=== PATIENT | male | born 1955 | race Caucasian/White ===

== ENCOUNTER 2018-06-28 08:40 | Emergency (ER) | payer OTHER, MEDICAID, SELFPAY ==
[2018-06-28 08:41] VITALS: BP 156/87; PULSE 83; RESP 16; TEMP 36.5; O2SAT 99; BMI 28.1
--- NOTE | 2018-06-28 09:30 | RAD_ITS ---
STUDY: X-RAY CHEST REASON FOR EXAM: Male, 63 years old. Cough. TECHNIQUE: PA and lateral views of the chest. COMPARISON: Portable chest dated September 15, 2016. FINDINGS: The lungs are clear and expanded. There is no pleural effusion. There is no pneumothorax. Normal size heart. There is no demonstrated mediastinal lymphadenopathy or mediastinal mass lesion. Normal visualized pulmonary arteries. There is atherosclerotic calcification of the aortic arch with tortuosity. There are diffuse degenerative changes of the visualized thoracic spine. There is no evident acute osseous abnormality. There is no demonstrated abnormality of the visualized soft tissue structures of the upper abdomen. RAD/Chest PA and Lateral IMPRESSION: There is no radiographically evident acute cardiopulmonary disease. Atherosclerotic peripheral vascular disease. Mild diffuse degenerative spinal changes. Electronically Signed: Mukesh Hoyos MD at 10:03 EDT , Service support ,
[2018-06-28 09:38] VITALS: TEMP 36.5; O2SAT 99
[2018-06-28 10:02] VITALS: TEMP 37
--- NOTE | 2018-06-28 10:54 | ED.VISSUMM ---
- ER Visit Summary Date of Service: 06/28/18 Chief Complaint: Cough History of Present Illness: The patient is a 63 M states for last 4 days he had a progressively worsening cough. Typically nonproductive at times clear sputum. No fever. No chills no shortness of breath. [facility] primary care physician 1 to have a chest x-ray done. He denies any nausea, vomiting or diarrhea. He does have a history of coronary disease with cardiac stents. He is a non-smoker. Physical Examination: Well-appearing older male. Vital signs are stable. He is afebrile. His pulse ox is 9 9% on room air no signs of hypoxia. H EENT exam unremarkable. Neck nontender no lymphadenopathy. Lungs clear to auscultation bilaterally. No rales, rhonchi or wheezing. Equal symmetrical. Heart regular rate and rhythm rate about 80 no murmur. Abdomen is soft and nontender. Patient is moving all 4 extremities. Neurovascular intact. Toes are nontender without edema. Her logically is awake and alert with no focal motor deficits. Test Results: Patient requested a chest x-ray be performed 2 view chest x-ray showed no acute abnormality. No pneumonia. Normal cardiac silhouette. Chronic changes. Emergency Department Course and Treatment: Patient is doing well on repeat exam at 1053. Treatment Plan: Z-pack. Follow-up with his primary care physician. Disposition: Discharge Impression: Acute bronchitis This note was generated with [employer] dictation software. It may contain incorrect words, spelling, and punctuation that were not noted in review of the chart prior to signing ED Disposition - Plan for ED Patient: Referrals: Bob Ortiz MD [Primary Care Provider] -
--- NOTE | 2018-06-28 10:56 | ED.DEP ---
ED Disposition - Plan for ED Patient: Disposition: Home or Assisted Living Instructions: Acute Bronchitis Prescriptions: Azithromycin [Zithromax Z-Lazaro] 250 mg PO UD #1 box Referrals: Bob Ortiz MD [Primary Care Provider] - 1 Week if not improving Additional Instructions: Plenty fluids and rest. Not improving in 4 days start antibiotic. This is most likely a viral infection. Follow-up with your doctor if not improving.
[2018-06-28 11:03] VITALS: PULSE 76; RESP 17; TEMP 37; O2SAT 97
== END 2018-06-28 11:11 | disposition home or self-care (01) ==
PROVIDERS: Emergency Provider Emergency Medicine; Family Provider Internal Medicine; PCP Internal Medicine
DX: J20.9 Acute bronchitis, unspecified (principal); I25.10 Atherosclerotic heart disease of native coronary artery without angina pectoris; Z95.5 Presence of coronary angioplasty implant and graft; I25.2 Old myocardial infarction; I10 Essential (primary) hypertension; E11.9 Type 2 diabetes mellitus without complications; Z79.82 Long term (current) use of aspirin; Z79.02 Long term (current) use of antithrombotics/antiplatelets; Z79.899 Other long term (current) drug therapy
CPT/HCPCS: 71046; 99282

== ENCOUNTER 2018-10-19 10:01 | Emergency (ER) | payer MEDICAID, OTHER, SELFPAY ==
[2018-07-27 12:44] VITALS: BMI 28.1
[2018-10-19 10:02] VITALS: BP 140/80; PULSE 71; RESP 18; TEMP 36.6; O2SAT 98; BMI 27.5
[2018-10-19 10:43] VITALS: BP 114/75; PULSE 65; RESP 18; O2SAT 97
[2018-10-19 10:43] LABS: Pathologist Comment May follow
--- NOTE | 2018-10-19 10:43 | ED.VISSUMM ---
- ER Visit Summary Date of Service: 10/19/18 Chief Complaint: Right elbow swelling History of Present Illness: The patient is a 63 M who states that he has developed right elbow swelling over the past several days. He does note that he bumped his elbows quite frequently but is never had this type of swelling. There is any pain in the elbow. Is able to flex and extend okay. Denies any fevers. He denies any no breaks in skin. He was recently on Plavix but that has been discontinued as it is been years since his NH. He has no history of gout. Physical Examination: Afebrile vital signs stable Gen: Well-nourished well-developed Head: Normocephalic atraumatic Eyes: Perrl EOMI ENT: TMs clear no rhinorrhea moist mucous membranes Neck: Supple no lymphadenopathy no JVD nontender CVS: Regular rate rhythm no murmurs normal S1-S2 Respiratory: No distress clear to auscultation bilaterally chest nontender Abdomen: Soft nontender nondistended normal bowel sounds no masses Back: Nontender Extremity: The right elbow demonstrates swelling over the olecranon. There is some mild redness and increased warmth. He is full range of motion without pain. I do not see any cuts in the skin. There is no lymphangitic streaking. Skin: Normal color no rash Neuro: alert orientated ?3 CN II-XII intact normal strength sensation Psych: Normal affect normal mood Test Results: Bursal fluid showed 178,000 white blood cells. Negative crystals. Negative Gram stain. Emergency Department Course and Treatment: Using a lateral approach and sterile technique the skin over the olecranon was washed with Betadine and allowed to dry. 1 cc of lidocaine was instilled into the skin for local anesthesia. An 18-gauge needle was passed successfully into the bursa and 10 cc of straw-colored fluid was removed. The needle was removed and Band-Aid applied. Abel wrap was then applied on top of that. Patient began to feel very hot and diaphoretic. He was laid down and was allowed to recover. Patient was started on prednisone and naproxen. Cultures of the fluid was obtained. Patient will follow up with primary care if not improving return if worsening or concerns. Impression: 1. Olecranon bursitis 2. Bursal aspiration by physician This note was generated with [employer] software. It may contain incorrect words, spelling, and punctuation that were not noted in review of the chart prior to signing ED Disposition - Plan for ED Patient: Disposition: Home or Assisted Living Instructions: Bursitis, Elbow (Olecranon) Prescriptions: Prednisone [Deltasone] 40 mg PO DAILY #10 tab Prescription Printed Naproxen [Naprosyn] 500 mg PO BID #14 tab Prescription Printed Referrals: Bob Ortiz MD [Primary Care Provider] - 3-5 Days if not improving
[2018-10-19 10:54] LABS: Synovial Fld Mononuclear WBC % 49.4 %; Synovial Fld Polynuclear WBC % 50.6 %
[2018-10-19 10:59] LABS: RBC /Synovial Fluid 0.005 10^6/uL (0)
[2018-10-19 11:08] LABS: AUTO B FLUID DILUENT BKGD CT WBC <0.1 RBC <0.01 (W<.1,R<.01); Source- Body Fluid SYNOVIAL
[2018-10-19 11:09] LABS: Appearance /Synovial Fluid Cloudy (CLEAR); Color / Synovial Fluid Yellow (Pale Yellow); Source / Synovial Fluid R ELBOW
[2018-10-19 11:30] LABS: Body Fluid QC Type(s) BF1Q,BF2Q
[2018-10-19 11:33] LABS: Lymph 13 %; Monocyte /Synovial Fluid 57 %; Neutrophil 30 % (0-25)
[2018-10-19 11:52] VITALS: BP 131/81; PULSE 65; RESP 18
[2018-10-21 09:15] LABS: Pathologist Review Reviewed
[2018-10-21 09:45] LABS: GLUCOSE, SYNOVIAL FLUID 119 mg/dL (.); PROTEIN, SYNOVIAL FLUID 3.9 g/dL (.)
== END 2018-10-19 11:54 | disposition home or self-care (01) ==
PROVIDERS: Emergency Provider Emergency Medicine; Family Provider Internal Medicine; PCP Internal Medicine
DX: M70.21 Olecranon bursitis, right elbow (principal); I25.2 Old myocardial infarction; I25.10 Atherosclerotic heart disease of native coronary artery without angina pectoris; K21.9 Gastro-esophageal reflux disease without esophagitis; I10 Essential (primary) hypertension; Z87.891 Personal history of nicotine dependence
CPT/HCPCS: 20605; 20610; 82945; 84157; 87070; 87075; 87205; 89050; 89051; 89060; 99283

== ENCOUNTER → 2020-09-20 09:39 | Outpatient (CLI) | payer MEDICAID, SELFPAY ==
[2020-09-01 11:46] VITALS: BMI 26.6
--- NOTE | 2020-09-20 09:41 | CDU_ITS ---
Reason For Study: Right carotid bruit Rt. Velocities/BP Lt. Velocities/BP Prox CCA 95.6/16 cm/sec. Prox CCA 92.5/15.1 cm/sec. Mid CCA 90.4/26.5 cm/sec. Mid CCA 63/15.1 cm/sec. Dist CCA 70.8/22.6 cm/sec. Dist CCA 69.5/14.2 cm/sec. Prox ICA 124.7/42.6 cm/sec. Prox ICA 39.3/8.1 cm/sec. Mid ICA 358.4/104 cm/sec. Mid ICA 268.9/96.4 cm/sec. Dist ICA 210.6/70.7 cm/sec. Dist ICA 94.2/30.3 cm/sec. Rt. ICA/CCA = 3.96. Lt. ICA/CCA = 3.90. Prox ECA 161.4/29.3 cm/sec. Prox ECA 181.3/21.1 cm/sec. Rt. Vert. 33.7/11 cm/sec. Lt. Vert. 69.5/24.1 cm/sec. Right Extracranial There is homogeneous, smooth atherosclerotic plaque noted in the right common carotid artery. There is heterogeneous, irregular atherosclerotic plaque noted in the right internal carotid artery. There is heterogeneous, irregular atherosclerotic plaque noted in the right external carotid artery. Antegrade flow is noted in the right vertebral artery. Left Extracranial There is homogeneous, smooth atherosclerotic plaque noted in the left common carotid artery. There is heterogeneous, irregular atherosclerotic plaque noted in the left internal carotid artery. Drum beat flow noted at the Proximal ICA. There is heterogeneous, irregular atherosclerotic plaque noted in the left external carotid artery. Antegrade flow is noted in the left vertebral artery. Procedure Carotid Duplex [id number]. This is a Carotid Duplex examination using B-mode, color flow and specral Doppler. Preliminary called to Sonja. Exam performed in department. VL/Carotid Duplex Ultrasound Interpretation Summary Irregular calcific plaque at the proximal right internal and external carotid a rteries Greater than 70% stenosis right internal carotid artery with visible area of na rrowed mid internal carotid artery with significant turbulence Less than 50% stenosis right external carotid artery Irregular calcific plaque at the proximal left internal and external carotid ar teries Greater than 70% stenosis left internal carotid artery Less than 50% stenosis left external carotid artery Patent and antegrade vertebral arteries bilaterally Ordering Physician: Gayathri Noonan Referring Physician: Bob Ortiz M.D. Performed By: Dionne Cabral RVT and Student
== END ==
PROVIDERS: PCP Internal Medicine; Referring Provider Physician Assistant Medical; Visit Provider Physician Assistant Medical
DX: R09.89 Other specified symptoms and signs involving the circulatory and respiratory systems (principal); I25.10 Atherosclerotic heart disease of native coronary artery without angina pectoris; I48.0 Paroxysmal atrial fibrillation; I10 Essential (primary) hypertension; E78.00 Pure hypercholesterolemia, unspecified
CPT/HCPCS: 93880

== ENCOUNTER → 2020-10-13 07:37 | Outpatient (CLI) | payer MEDICAID, SELFPAY ==
[2020-10-06 13:30] VITALS: BMI 26.9
--- NOTE | 2020-10-13 07:38 | CT_ITS ---
STUDY: CTA NECK WITH CONTRAST REASON FOR EXAM: Male, 65 years old. Bilateral carotid stenosis RADIATION DOSAGE (If Supplied By Facility): CTDIvol = ( 18.34 ) mGy, DLP = ( 540.83 ) mGycm TECHNIQUE: CT angiography with multi-detector data acquisition was performed from the aortic arch to the skull base following intravenous administration of IV 100mL Isovue-370. MIP images were reconstructed from the axial data set. Post-processing of the angiographic images was performed, with multiplanar reformation and 3D reconstruction. Individualized dose optimization techniques were used for this CT. COMPARISON: None. FINDINGS: AORTIC ARCH: There is atherosclerotic calcific plaque formation of the aortic arch and great vessels arising from the aortic arch, without a hemodynamically significant stenosis. There is a normal origin of the brachiocephalic, left common carotid, and left subclavian arteries. RIGHT CAROTID ARTERIES: Normal right common carotid artery (CCA). Normal right common carotid bulb. There is extensive atherosclerotic plaque formation of the origin of the right internal carotid artery with an estimated stenosis of greater than 70%. Normal visualized cervical portion of the right internal carotid artery. Normal origin of the right external carotid artery (ECA). LEFT CAROTID ARTERIES: Normal left common carotid artery (CCA). Normal left common carotid bulb. There is severe atherosclerotic plaque formation of the origin of the left internal carotid artery with a near complete occlusion. Normal visualized cervical portion of the left internal carotid artery. Normal origin of the left external carotid artery (ECA). VERTEBRAL ARTERIES: There is enhancement within the bilateral vertebral arteries with a small right vertebral artery, and a dominant left vertebral artery. CT/CTA Neck W/WO Contrast IMPRESSION: There is a tight stenosis in the proximal portion of the left internal carotid artery with evidence of an ulcerated plaque. There is evidence of a greater than 70% narrowing in the proximal portion of the left internal carotid artery. Electronically Signed: Hollis Nickerson MD at 9:26 EDT , Service support ,
[2020-10-13 07:51] LABS: CREATININE FINGERSTICK 0.7 mg/dL (0.70-1.30); EGFR FINGERSTICK > 60.0000 mL/min (>60)
== END ==
PROVIDERS: PCP Internal Medicine; Referring Provider Surgery; Visit Provider Surgery
DX: I65.23 Occlusion and stenosis of bilateral carotid arteries (principal)
CPT/HCPCS: 70498; Q9967

== ENCOUNTER → 2020-10-18 05:48 | Outpatient (CLI) | payer MEDICAID, SELFPAY ==
--- NOTE | 2020-10-18 11:10 | STRESSREP_ITS ---
Stress Test Report Pharmacologic marrow stress test. Preoperative evaluation. Stress protocol: Resting EKG demonstrates normal sinus rhythm with a rate of 67 bpm no intervals are noted resting blood pressure is 168/72 mmHg. 0.4 mg of regadenoson was infused per usual protocol followed by rapid Intravenous saline flush injection continuous EKG monitoring was performed. The maximum heart rate attained was 107 bpm which was 68% of max infected heart rate the maximum workload was 1 metabolic equivalent. At rest there were no ST or T wave changes noted to sugg est abnormal flow reserve and at peak infusion nonspecific ST changes were noted with did not meet the criteria for ischemia. No clinical angina was noted. The final blood pressure was 140/76 mmHg. Myocardial perfusion protocol. 11.8 mCi of technetium 99m sestamibi was injected at rest. 0.4 mg of regadenoson was infused per usual protocol. At peak infusion 33.2 mCi of technetium 99m sestamibi was injected stress images were obtained stress and rest images were reconstructed and compared in the short axis vertical long and horizontal long axis. Gated images were also obtained. Perfusion SPECT analysis: Review of the stress images demonstrate normal uptake of tracer noted in all areas of the myocardium. The resting images similarly demonstrate normal uptake of tracer noted in all areas of the myocardium. No areas of reversibility are noted to suggest ischemia and no previous infarct is noted. Gated SPECT analysis: The gated ejection fraction is 64%. Conclusion: Normal pharmacologic myocardial perfusion stress test. Preserved ejection fraction.
== END ==
PROVIDERS: PCP Internal Medicine; Referring Provider Physician Assistant Medical; Visit Provider Physician Assistant Medical
DX: R09.89 Other specified symptoms and signs involving the circulatory and respiratory systems (principal); I25.10 Atherosclerotic heart disease of native coronary artery without angina pectoris; I48.0 Paroxysmal atrial fibrillation; I10 Essential (primary) hypertension; E78.00 Pure hypercholesterolemia, unspecified
CPT/HCPCS: 78452; 93017; A9500; A4216; J2785

== ENCOUNTER 2020-10-19 05:18 | Inpatient (IN) | payer MEDICAID, SELFPAY ==
--- NOTE | 2020-10-17 13:24 | EKG12_ITS ---
Test Reason : PREOP Blood Pressure : / mmHG Vent. Rate : 069 BPM Atrial Rate : 069 BPM P-R Int : 134 ms QRS Dur : 094 ms QT Int : 400 ms P-R-T Axes : 055 033 057 degrees QTc Int : 428 ms Sinus rhythm with Premature ventricular complexes Otherwise normal ECG Confirmed by MANI KING, TERRI ([id number]), editor managing newspaper CHUCK COOPER ([id number]) on 10/18/2020 8:46:22 AM Referred By: Chan Rodarte Confirmed By:TERRI SINGLETON MD
[2020-10-17 13:49] LABS: Hematocrit 41.4 % (40-54); Hemoglobin 14.6 g/dL (13.0-16.5); Mean Corp Hgb Conc 35.3 g/dL (32-36); Mean Corpuscular Hgb 31.1 pg (27.0-32.0); Mean Corpuscular Volume 88.1 fL (80-94); Mean Platelet Vol. 9.8 fl (6.2-12.0); Platelet Count 284 K/mm3 (150-450); RBC Distribution Width CV 11.6 % (11.6-14.6); RBC Distribution Width SD 37.5 fl (35.1-43.9); White Blood Count 10.8 K/mm3 (4.4-11.0)
[2020-10-17 13:58] LABS: International Normalized Ratio 1.1; Partial Thromboplast Time 30.5 Seconds (24.1-36.2); Prothrombin Time (Protime)PT. 13.5 SECONDS (11.7-14.9)
[2020-10-17 14:17] LABS: AST(SGOT) 58 U/L (15-37); Alanine Aminotransfer ALT/SGPT 112 U/L (16-61); Albumin, Serum 4.3 g/dL (3.2-5.0); Alkaline Phosphatase 90 U/L (45-117); Anion Gap 4 (5-15); BUN 12 mg/dL (7-18); BUN/Creat Ratio 15.7 RATIO (10-20); Bilirubin, Direct 0.17 mg/dL (0.00-0.30); Calcium,Total 9.4 mg/dL (8.5-10.1); Chloride 102 mmol/L (98-107); Creatinine, Serum 0.77 mg/dL (0.70-1.30); EST Glomerular Filtration Rate 109 mL/min (>60); Est Glom Filt Rate - Afr Amer 131 mL/min (>60); Globulin 3.3 g/dL (2.2-4.2); Glucose 127 mg/dL (74-106); Protein, Total 7.6 g/dL (6.4-8.2); Sodium Level 136 mmol/L (136-145)
[2020-10-19] VITALS (24 sets, daily range): BP systolic 78–156; BP diastolic 38–113; PULSE 57–78; RESP 14–106; TEMP 36.2–36.8; O2SAT 95–100; BMI 26.5
--- NOTE | 2020-10-19 05:22 | HP.PCM_ITS ---
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 Is patient in pain?: No Allergies atorvastatin Allergy (Verified 10/17/20 14:53) Other fish oil Allergy (Verified 10/17/20 14:53) Rash guaifenesin Allergy (Verified 10/17/20 14:53) Unknown morphine Allergy (Verified 10/17/20 14:53) Anaphylaxis niacin [From Slo-Niacin] Allergy (Verified 10/17/20 14:53) Unknown pravastatin Allergy (Verified 10/17/20 14:53) Other tramadol Allergy (Verified 10/17/20 14:53) Itching lisinopril Adverse Reaction (Intermediate, Verified 10/17/20 14:53) Sharp needle like pain in left chest, went away when stopped Medications docusate sodium 100 mg PO DAILY 05/24/15 [History Confirmed 10/17/20] metoprolol tartrate 50 mg PO BID 05/24/15 [History Confirmed 10/17/20] aspirin 81 mg PO DAILY 06/26/15 [History Confirmed 10/17/20] clopidogrel 75 mg PO DAILY 06/26/15 [History Confirmed 10/17/20] amlodipine 5 mg tablet 5 mg PO DAILY 07/27/18 [History Confirmed 10/17/20] polyethylene glycol 3350 17 gram oral powder packet 17 g PO DAILY 07/23/19 [History Confirmed 10/17/20] colestipol 1 gram tablet 1 g PO DAILY tab 09/01/20 [History Confirmed 10/17/20] ketotifen fumarate [Allergy Eye (ketotifen)] 1 drp EACH EYE BID 10/17/20 [History Confirmed 10/17/20] omeprazole 20 mg PO DAILY 10/17/20 [History Confirmed 10/17/20] [facility] Medical History Atherosclerotic heart disease of [place] coronary artery without angina pectoris Bilateral carotid artery stenosis Cardiology follow-up encounter Easy bruising Encounter for long-term current use of high risk medication Essential (primary) hypertension Former smoker High cholesterol History of atrial fibrillation History of diverticulitis History of echocardiogram History of heart attack History of IBS History of non-ST elevation myocardial infarction (NSTEMI) (05/25/15) Hyperlipidemia Hypertension Injury of back Paroxysmal atrial fibrillation Right carotid bruit Shortness of breath TIA (transient ischemic attack) Wears glasses Surgical History History of back surgery History of cardiac catheterization History of coronary artery stent placement (05/25/15) History of coronary artery stent placement Hx of cholecystectomy Family History Father Hypertension Myocardial infarction Mother Breast cancer Brother COPD (chronic obstructive pulmonary disease) Social History Smoking Status: Former smoker alcohol intake: never substance use type: does not use what type of physical activity do you participate in: walking frequency: daily HPI HPI HPI: ELIAS SHANE, is a 65 M who presents to the office today for follow-up of dizziness and extracranial carotid artery occlusive disease. He is intolerant to statin medications. He is on 81 mg aspirin and clopidogrel therapy. Carotid duplex imaging of September 20, 2020 was abnormal with greater than 70% stenosis bilateral internal carotid arteries. He receives his care locally and through the [facility] system. In evaluation I obtained a CTA of the neck on October 13, 2020. There is very tight stenosis if not near complete occlusion of the left internal carotid artery with plaque ulceration. There is greater than 70% stenosis of the right internal carotid artery. October 13 2020 STUDY: CTA NECK WITH CONTRAST REASON FOR EXAM: Male, 65 years old. Bilateral carotid stenosis RADIATION DOSAGE (If Supplied By Facility): CTDIvol = ( 18.34 ) mGy, DLP = ( 540.83 ) mGycm TECHNIQUE: CT angiography with multi-detector data acquisition was performed from the aortic arch to the skull base following intravenous administration of IV 100mL Isovue-370. MIP images were reconstructed from the axial data set. Post-processing of the angiographic images was performed, with multiplanar reformation and 3D reconstruction. Individualized dose optimization techniques were used for this CT. COMPARISON: None. FINDINGS: AORTIC ARCH: There is atherosclerotic calcific plaque formation of the aortic arch and great vessels arising from the aortic arch, without a hemodynamically significant stenosis. There is a normal origin of the brachiocephalic, left common carotid, and left subclavian arteries. RIGHT CAROTID ARTERIES: Normal right common carotid artery (CCA). Normal right common carotid bulb. There is extensive atherosclerotic plaque formation of the origin of the right internal carotid artery with an estimated stenosis of greater than 70%. Normal visualized cervical portion of the right internal carotid artery. Normal origin of the right external carotid artery (ECA). LEFT CAROTID ARTERIES: Normal left common carotid artery (CCA). Normal left common carotid bulb. There is severe atherosclerotic plaque formation of the origin of the left internal carotid artery with a near complete occlusion. Normal visualized cervical portion of the left internal carotid artery. Normal origin of the left external carotid artery (ECA). VERTEBRAL ARTERIES: There is enhancement within the bilateral vertebral arteries with a small right vertebral artery, and a dominant left vertebral artery. CT/CTA Neck W/WO Contrast IMPRESSION: There is a tight stenosis in the proximal portion of the left internal carotid artery with evidence of an ulcerated plaque. There is evidence of a greater than 70% narrowing in the proximal portion of the left internal carotid artery. Electronically Signed: Hollis Nickerson MD at 9:26 EDT , Service support , Office visit October 06, 2020 Intake Visit Reasons: Carotid Artery Stenosis Chief Complaint: Follow up Senior Talent Management Consultant Required: No Is patient in pain?: No Allergies atorvastatin Allergy (Verified 10/06/20 13:31) Other fish oil Allergy (Verified 10/06/20 13:31) Rash guaifenesin Allergy (Verified 10/06/20 13:31) Unknown morphine Allergy (Verified 10/06/20 13:31) Anaphylaxis niacin [From Slo-Niacin] Allergy (Verified 10/06/20 13:31) Unknown pravastatin Allergy (Verified 10/06/20 13:31) Other tramadol Allergy (Verified 10/06/20 13:31) Itching lisinopril Adverse Reaction (Intermediate, Verified 10/06/20 13:31) Sharp needle like pain in left chest, went away when stopped Medications docusate sodium 100 mg PO DAILY 05/24/15 [History Confirmed 10/06/20] metoprolol tartrate 50 mg PO BID 05/24/15 [History Confirmed 10/06/20] aspirin 81 mg PO DAILY 06/26/15 [History Confirmed 10/06/20] clopidogrel 75 mg PO DAILY 06/26/15 [History Confirmed 10/06/20] amlodipine 5 mg tablet 5 mg PO DAILY 07/27/18 [History Confirmed 10/06/20] polyethylene glycol 3350 17 gram oral powder packet 17 g PO DAILY 07/23/19 [History Confirmed 10/06/20] colestipol 1 gram tablet 1 g PO DAILY tab 09/01/20 [History Confirmed 10/06/20] carboxymethylcellulose sodium 1 drp OPHTHALMIC (EYE) BID 10/06/20 [History Conf irmed 10/06/20] lisinopril 40 mg tablet 40 mg PO DAILY 10/06/20 [History Confirmed 10/06/20] simvastatin 20 mg tablet 20 mg PO DAILY 10/06/20 [History Confirmed 10/06/20] [facility] Medical History (Updated 09/20/20 @ 13:07 by Gayathri TAVARES, PA) Atherosclerotic heart disease of [place] coronary artery without angina pectoris Bilateral carotid artery stenosis Encounter for long-term current use of high risk medication Essential (primary) hypertension History of non-ST elevation myocardial infarction (NSTEMI) (05/25/15) Hyperlipidemia Paroxysmal atrial fibrillation Right carotid bruit Shortness of breath Surgical History (Updated 10/06/20 @ 13:34 by Airam Loaiza) History of back surgery History of coronary artery stent placement (05/25/15) History of hip surgery Hx of cholecystectomy Family History Father Hypertension Myocardial infarction Mother Breast cancer Brother COPD (chronic obstructive pulmonary disease) Social History Smoking Status: Former smoker alcohol intake: never substance use type: does not use what type of physical activity do you participate in: walking frequency: daily HPI HPI HPI: ELIAS SHANE, is a 65 M who presents to the office today for surgical consultation regarding extracranial carotid artery occlusive disease. The patient is referred by Gayathri Noonan PA-C and a written copy my surgical consult recommendations will return to her. She was seen the patient in cardiology on September 15, 2020 as he was complaining of shortness of breath just while walking through [facility]. A right carotid bruit was identified. The patient also received some of his health care through the [facility]. The patient's had a history of non-ST segment elevation NE with stenting of the distal right coronary artery April 2015. Additional comorbidities include hypertension, hyperlipidemia, paroxysmal atrial fibrillation and controlled diabetes. Among his other medicines he is on low-dose aspirin and clopidogrel therapy. On September 20, 2020 he had carotid duplex imaging at the [facility]. Peak systolic velocity within the right mid internal carotid artery was 356 cm/s flow with an end-diastolic velocity of 104 cm/s. The right ICA to CCA ratio is 3.96. He was estimated to have greater than 70% stenosis. Significant turbulence was identified. On the left his mid internal carotid artery had a peak systolic velocity of 268 cm/s flow with an end-diastolic velocity of 96. This also was felt to be greater than 70% stenosis. The patient states that occasionally when he is standing he will feel some left posterior neck dizziness. He has not had any falls. This is been only ongoing for the past couple weeks. He denies any difficulty going from a supine position to a sitting position or from a sitting position to a standing position. He occasionally does have some dizziness when he is walking. He has no vision problems. No focal motor or sensory loss of his arms or legs. He does have hyperlipidemia. He is cared for both locally and through the [facility] system. He has been intolerant to statin medications. He claims that he has some liver function test abnormality. He was a remote cigarette smoker but claims he quit about 16 years ago. ROS General General: Yes fatigue; No weight change, appetite, colon cancer, breast cancer or weakness HEENT HEENT: No difficulty swallowing, eye injury, eye surgery, swollen glands or hoarseness Endo Endocrine: Yes diabetes mellitus; No thyroid disease, thyroid cancer, Hair loss, heat intolerance or cold intolerance Skin Skin: No rash or changing moles Breast Breast: No left breast lump, right breast lump, nipple discharge, breast pain, abnormal mammogram, abnormal US or breast enlargement Musc Musculoskeletal: Yes back problems; No arthritis, rheumatoid arthritis, gout or joint pain Cardio Cardiovascular: No murmur, pacemaker, heart disease, atrial fibrillation, high blood pressure, heart attack, heart stent, palpitations, shortness of breat with exertion or chest pain Psych Psychiatric: No depression, anxiety or hearing voices Resp Respiratory: Yes shortness of breath, No sleep apnea, No cough, No COPD, No asthma, No emphysema and No wheezing Gastro Gastrointestinal: No abdominal pain, No nausea or vomiting, No diarrhea, Yes constipation, No blood in stool, Yes acid reflux, Yes hemorrhoids, No ulcers, No gallbladder problem and No black,tarry stools Leon Hematologic: Yes blood thinners, No blood disorders, No bleeding, No anemia and No blood clots Neuro Neurologic: No system reviewed and no additional complaints, except as documented, No as per HPI, No abnormal gait, No abnormal hearing, No abnormal movements, No abnormal speech, No behavioral changes, No burning sensations, No confusion, No convulsions, No disequilibrium, No dizziness, No localized weakness, No frequent falls, No headache(s), No lack of coordination, No loss of vision, No memory loss, Yes numbness, No other visual disturbances, No radicular pain, No restless legs, No sensory deficit, No syncope, Yes tingling, No tremor(s), No weakness and No other Exam Const General: cooperative, healthy appearing, comfortable and no acute distress Nutritional Appearance: average body habitus Orientation: alert and awake [facility] Head: normal to inspection Eyes General: appearance normal, both eyes and all related structures Chest Chest palpation & inspection: normal inspection of the chest Resp Effort & Inspection: normal respiratory effort Auscultation: clear to auscultation bilaterally Cardio Rate: regular rate Rhythm: regular rhythm Other: Bilateral radials 3+. Bilateral brachials 3+. Carotids are 2-3+ bilaterally. I have trouble detecting a bruit. Bilateral femorals 1-2+. GI Palpation: soft Percussion: normal to percussion Auscultation: normal bowel sounds Other: Not pulsatile or expansile Musc Cervical Spine: normal cervical lordosis Skin General: no rashes or lesions noted Neuro General: patient alert, patient awake and patient oriented x3 Extrem General: no calf tenderness Psych Appearance: grossly normal Assessment and Plan Assessment and Plan (1) Bilateral carotid artery stenosis: Status: Acute Plan - Dr. Chan Rodarte MD: Bilateral carotid stenosis greater than 70%. 2-week history of dizziness but I am not clear that this correlates well with his carotid occlusive disease. He has hyperlipidemia. His records suggest that he is on simvastatin but he states that because liver function test problems. He is on colestipol. Clopidogrel and aspirin. I propose for him a CTA of the carotids. I have discussed technique benefit risk complications alternatives of potential carotid intervention. We briefly compared and contrasted carotid artery surgery and carotid artery stenting. I am not completely clear at the moment that he will require either intervention although the peak systolic velocity and end-diastolic velocity both are significant elevated particularly in the right carotid. We will obtain additional imaging and expedite his care and have him return to the office for further discussion. He may very well be a candidate for right carotid endarterectomy. I very much appreciate the kind opportunity of assisting with the surgical care. Copy: Gayathri Noonan PA-C and Dr. Bob Ortiz and Dr. Amadoori Chan Rodarte M.D., F.A.C.S. ROS General General: Yes fatigue; No weight change, appetite, colon cancer, breast cancer or weakness HEENT HEENT: No difficulty swallowing, eye injury, eye surgery, swollen glands or hoarseness Endo Endocrine: Yes diabetes mellitus; No thyroid disease, thyroid cancer, Hair loss, heat intolerance or cold intolerance Skin Skin: No rash or changing moles Breast Breast: No left breast lump, right breast lump, nipple discharge, breast pain, abnormal mammogram, abnormal US or breast enlargement Musc Musculoskeletal: Yes back problems; No arthritis, rheumatoid arthritis, gout or joint pain Cardio Cardiovascular: No murmur, pacemaker, heart disease, atrial fibrillation, high blood pressure, heart attack, heart stent, palpitations, shortness of breat with exertion or chest pain Psych Psychiatric: No depression, anxiety or hearing voices Resp Respiratory: Yes shortness of breath, No sleep apnea, No cough, No COPD, No asthma, No emphysema and No wheezing Gastro Gastrointestinal: No abdominal pain, No nausea or vomiting, No diarrhea, Yes constipation, No blood in stool, Yes acid reflux, Yes hemorrhoids, No ulcers, No gallbladder problem and No black,tarry stools Leon Hematologic: Yes blood thinners, No blood disorders, No bleeding, No anemia and No blood clots Neuro Neurologic: No system reviewed and no additional complaints, except as documented, No as per HPI, No abnormal gait, No abnormal hearing, No abnormal movements, No abnormal speech, No behavioral changes, No burning sensations, No confusion, No convulsions, No disequilibrium, No dizziness, No localized weakness, No frequent falls, No headache(s), No lack of coordination, No loss of vision, No memory loss, Yes numbness, No other visual disturbances, No radicular pain, No restless legs, No sensory deficit, No syncope, Yes tingling, No tremor(s), No weakness and No other Assessment and Plan Assessment and Plan (1) Bilateral carotid artery stenosis: Status: Acute Plan - Dr. Chan Rodarte MD: I had an extensive discussion with the 65-year-old gentleman today. He has high-grade critical stenosis with plaque ulceration of his left internal carotid artery. He has additionally greater than 70% stenosis of the right internal carotid artery. He has had a history of a previous myocardial infarction. I propose for him a left carotid endarterectomy with bovine patch angioplasty. I would utilize arterial line monitoring. I would hopefully be able to place a intravascular shunt during the procedure because of his right carotid stenosis. In great detail with his present I have discussed the technique, benefit, risk, alternatives. He is keenly aware that this particular situation places him at significantly increased operative and perioperative risk. He is on low- dose aspirin and clopidogrel in addition to his other medicines. He will take those medications the day preop. Because of his cardiac history and after discussion with Dr. Carlos Choi the patient will undergo a nuclear medicine stress test tomorrow 1 day preoperatively. If he is determined to be at high cardiac risk then he will referred to a tertiary center for consideration of cardiac and extracranial carotid therapy. He has had an opportunity to ask and have questions answered. He is very much aware that this is an increased risk operative intervention. He is at risk for myocardial infarction and stroke and local nerve injury in addition to additional operative risk issues associated with general anesthesia. We will proceed with surgery intervention if he passes cardiology evaluation. On the morning of the surgery anticipate a left carotid duplex exam or assuring that the artery is still patent at that time. Copy: Dr. Bob Ortiz and Dr. Carlos Rodarte M.D., F.A.C.S. Patient passed his stress test yesterday without signs of ischemia. We will proceed with repair of critical stenosis with plaque ulceration left internal carotid artery. Chan Rodarte M.D., F.A.C.S.
--- NOTE | 2020-10-19 05:22 | PCM.DC ---
Discharge Instructions Diet Discharge Diet: Light diet - advance as tolerated Activity Discharge Activity: May Not Drive (For 5 to 7 days), May Not Shower (For 3 days) and May Take a Tub Bath Weight Bearing Status: Full weight bearing Dressing / Incision Call your doctor if your incision/area has: Continuous Slow Oozing, Sudden Increased Bleeding and Increased Pain/ Swelling Call your doctor if you observe: Fever of 101 or Higher Suture Line Care: Avoid Pulling/Pushing Change Dressing in: 1 day (You may apply a dry gauze cover dressing to your incision as needed to protect from clothing irritation. Change as needed) Remove Dressing in: 1 week (Leave your Steri-Strips in place for 1 week then you may remove) Follow Up Care Please Follow Up With: Chan Rodarte MD When: Approximately 10 days. Please call [phone] to arrange for an appointment Test Results: You may shower starting on Friday. Discharge Plan Admission Admit Date/Time: 10/19/20 05:18 Primary Reason for Your Visit: Critical stenosis left internal carotid artery with plaque ulceration Attending Provider: Chan Rodarte Primary Care Provider: Bob Ortiz Discharge Orders/Prescriptions Prescriptions: Continued amlodipine 5 mg tablet 5 mg PO DAILY RF: 0 colestipol 1 gram tablet 1 g PO DAILY RF: 0 polyethylene glycol 3350 [Miralax] 17 gram powder in packet 17 g PO DAILY RF: 0 metoprolol tartrate 50 MG tablet 50 mg PO BID RF: 0 docusate sodium 100 MG capsule 100 mg PO DAILY RF: 0 clopidogrel 75 MG tablet 75 mg PO DAILY RF: 0 aspirin 81 MG tablet,delayed release (DR/EC) 81 mg PO DAILY RF: 0 ketotifen fumarate [Allergy Eye (ketotifen)] 0.025 % (0.035 %) Drops 1 drp EACH EYE BID RF: 0 omeprazole 20 mg Capsule,Delayed Release(Dr/Ec) 20 mg PO DAILY RF: 0 Referrals / Follow Up: Bob Ortiz MD [Primary Care Provider] - Disposition Disposition (needs filled in before D/C Order can be placed): Home, Self Care
[2020-10-19] MEDS: Lactated Ringers 1,000 ML 100 ML IV ×2 (05:40→09:01)
--- NOTE | 2020-10-19 06:28 | OP.PCM_ITS ---
Problems Associated Problem List Diagnoses (1) Bilateral carotid artery stenosis: Report of Operation Date of Procedure: 10/19/20 Pre-Operative Diagnosis: Bilateral carotid artery stenosis with critical stenosis and plaque ulceration on the left Post-Operative Diagnosis: Same Surgery/Procedure Performed:: Right radial arterial line placement Left carotid endarterectomy with bovine patch angioplasty Reference number: [id number] number [id number] Expiry date 01/24/2025 Description of Surgical Findings:: At the bedside timeout and informed consent was obtained. Dylan test performed demonstrating adequate right ulnar flow. The right wrist was gently extended prepped with Betadine. 1% lidocaine was used as a local anesthetic. Under ultrasound guidance 1 cc was injected. A 20- gauge arrow Angiocath was inserted under ultrasound guidance into the right radial artery and then with Seldinger wire technique was nicely advanced. Was secured to skin with 3-0 silk. Was connected to pressure tubing. OpSite dressing applied. Florence wrap dressing applied. Hand was viable no apparent complication he tolerated the procedure well good waveform was obtained. Subsequently the patient was taken to the operating room placed supine on the table. Ancef 2 g were given intravenously preoperatively. He underwent general endotracheal intubation anesthesia. The left neck was sterilely prepped and draped. An oblique incision was made along the anterior border the sternocleidomastoid. Sharp dissection was carried down through the subcutaneous tissues. Sharp and blunt dissection was used to identified the common carotid carotid bulb proximal portion of the internal/external carotid arteries. Moy tie of Dacron tape was placed around the common carotid. Vessel loop around the external carotid. Moy tie of 3-0 Vicryl around the superior thyroid artery. A Dacron tape was placed around the internal carotid with partial application of a Karlie tourniquet The patient received 8000 units of heparin intravenously. It is of note that dissection was tedious. The ansa cervicalis had to be transected hypoglossal and hypoglossal had to be mobilized medially. The degree of disease involved a significant amount of the proximal extending into the mid internal carotid artery. Cephalad control was indeed challenging. After adequate circulating time peripheral vascular clamps were placed on the internal carotid common carotid external carotid 11 blade was used to make an arteriotomy extensive lumen occluding plaque and grumous debris was identified. Had to use a 15 blade cephalad on the internal carotid artery in order to refine the lumen. Moy scissors were used. A #10 USCI style shunt was placed cephalad than proximally. An endarterectomy was then performed of the layer of the external elastic lamina. The plaque was sharply transected proximally and then feathered distally. Several tacking sutures of 7-0 Prolene [place] for smooth transition of the internal carotid intima. An inversion endarterectomy was performed of the external carotid. Further debris was carefully removed. Then a bovine patch angioplasty performed. A parachute technique was performed cephalad and then as the patch was being stitched to the cephalad shunt became dislodged. Because of the patient's history of critical stenosis on the left and likely low flow I elected not to attempt replacement of the shunt and completed the rest the patch angioplasty without the shunt in place. Cerebral oximetry remained stable throughout. The patch angioplasty was completed that vessel was copiously irrigated retrograde flow from the internal carotid was appropriate retrograde flow from the external and common carotid was good. Patch angioplasty completed initial flow instituted from the external carotid then common carotid and finally the internal carotid. Several repair sutures of the 7-0 Prolene were required hemostasis was achieved. It is of note that throughout the entire operative procedure the patient had diffuse oozing from all tissue sites dermis subcutaneous tissues dissected tissues. He had been on aspirin and Plavix therapy up to the day prior to the procedure because of his high risk nature. After assuring that all surgical bleeding was secured. I then placed FloSeal in the neck pressure was held. The platysmas was approximated a running 3-0 Vicryl. The skin edges by running septic or 5-0 Vicryl. Periincisional areas Nestabs with 20 cc of 0.5% Marcaine. Steri-Strips Telfa and OpSite dressings applied. Sponge and instrument and needle counts were reported to certainly be correct. Specimens plaque. Drains none. Blood loss 350 cc. He was taken to the recovery room in satisfactory addition without apparent complication He awoke on the table appeared to be speaking clearly was neurologically intact moving all 4 extremities. Chan Rodarte M.D., F.A.C.S. Surgeon: Chan Rodarte Type of Anesthesia: General and Local Anesthesiologist: Marcell Israel
[2020-10-19] MEDS: Cefazolin 2 GM in 0.9% Normal Saline 100 ML IV (07:13)
--- NOTE | 2020-10-19 07:30 | PLAQ_PTH ---
PATIENT: ELIAS SHANE LOC: MS3 U#:[id number] AGE/SX: 65/M [place] [facility] [place]: Dr. Chan Rodarte MD : [id number] BED: 1 DIS: 10/20/2020 SPEC #: [id number] RECD: 10/19/20 12:35 STATUS: DONALD MENENDEZ #: [id number] ABHILASH: 10/19/20 07:[address]: Chan Rodarte DEPT: SURGICAL PATHOLOGY RECD BY: Allison Love ENTERED: 10/19/20 12:52 SP TYPE: PLAQUE OTHR DR: Dr. Bob Ortiz MD Tissues: PLAQUE Procedures: Decalcification bone/plaque Surgery Specimen Level III HEADER OPERATION: Carotid endarterectomy with patch angioplasty PRE-OP DIAGNOSIS: Bilateral carotid artery stenosis with critical stenosis and plaque ulceration on the left TISSUE SUBMITTED: Left carotid plaque MICROSCOPIC DIAGNOSIS Left carotid artery plaque, endarterectomy: Calcified atheromatous plaque consistent with severe stenosis. AM:zane 10/23/2020 GROSS DESCRIPTION Received in fixative is one container labeled with the patient's name and designated left carotid plaque. The specimen consists of a previously opened Y-shaped piece of diamond, indurated tissue measuring 4 cm in length and up to 1 cm in diameter. The specimen cuts with a gritty sensation. Printer Assistant sections are submitted in one cassette after decalcification. / SJ:zane 10/19/20 TC:5 CPT: 16215, 62709
[2020-10-19] MEDS: Heparin Injection (Vial) 5,000 UNIT/ML VIAL 5000 UNIT (07:38)
[2020-10-19] MEDS: Bupivacaine Mpf 0.5% 30 ML VIAL (07:38)
[2020-10-19 09:34] LABS: ACT Activated Clotting Time 125 sec (74-137)
[2020-10-19 09:35] LABS: ACT Activated Clotting Time 235 sec (74-137)
[2020-10-19 09:36] LABS: ACT Activated Clotting Time 213 sec (74-137)
--- NOTE | 2020-10-19 11:08 | SUR.PHASEI ---
PRESSURE APPLIED TO LEFT NECK BY Arianne JACKSON RN FOR 30 MIN. PRESSURE RELEASED AT 1040. NO ACTIVE BLEEDING OR HEMATOMA NOTED. HOB ELEVATED 30 DEGREES.
--- NOTE | 2020-10-19 14:11 | SUR.PHASEI ---
AT 1345, RIGHT WRIST ARTERIAL CATHETER DISCONTINUED INTACT. PRESSURE APPLIED TO RIGHT WRIST FOR 10 MINUTED. DRY, STERILE DRESSING APPLIED.
[2020-10-19] MEDS: Cefazolin 1 GM/50 ML BAG IV ×2 (15:45→23:00)
[2020-10-19] MEDS: HYDROcodone Bitartrate/Apap 5/325 Tablet PO ×2 (15:47→17:07)
[2020-10-19] MEDS: BENZOCAINE/MENTHOL 1 LOZENGE 2 LOZENGE MUCOUS MEM (18:17)
[2020-10-19] MEDS: 0.9% Saline Lock 10 ML Syringe IV (22:59)
[2020-10-20 03:15] VITALS: BP 119/75; PULSE 94; RESP 16; TEMP 37; O2SAT 98
[2020-10-20] MEDS: HYDROcodone Bitartrate/Apap 5/325 Tablet PO (03:17)
--- NOTE | 2020-10-20 06:17 | PCM.PN.SRG ---
Subjective Subjective Patient is doing very well. Has no complaints. He is very pleased with the results. He feels that he is neurologically intact. Objective Data Objective Data Vital Signs: Vital Signs Temp Pulse Resp BP Pulse Ox 98.6 F 94 16 119/75 98 10/20/20 03:15 10/20/20 03:15 10/20/20 03:15 10/20/20 03:15 10/20/20 03:15 Oxygen Delivery Method Room Air Weight: 174 lb 9.698 oz Body Mass Index (BMI) 26.5 Intake & Output: Intake and Output for Last 24 Hours 10/18/20 10/19/20 10/20/20 23:59 23:59 23:59 Intake Total 2939.5 / 2939.5 Output Total 1025 / 1025 Balance 1914.5 / 1914.5 Lab / Micro Data Result Diagrams: 10/17/20 13:36 10/17/20 13:36 Labs: Laboratory Results - last 24 hr 10/19/20 06:40: Activated Clotting Time 125 10/19/20 08:44: Activated Clotting Time 235 H 10/19/20 09:14: Activated Clotting Time 213 H Micro: Microbiology 10/17/20 13:30 Interface Orders SARS-CoV-2 Antigen (Rapid) - Final Physical Exam Const Constitutional Narrative: Left neck is supple, minimal swelling, clean and dry, Extremity Extremity Narrative: Neurologic status grossly intact Assessment & Plan Assessment/Plan (1) Bilateral carotid artery stenosis: PLAN: Patient performed very very well status post his high risk left carotid endarterectomy. Plan discharge. He will resume all medications. Office follow-up in 10 days. I anticipate likely follow-up right carotid endarterectomy at 3 months. Chan Rodarte M.D., F.A.C.S.
[2020-10-20 08:36] VITALS: BP 132/76; PULSE 84; RESP 18; TEMP 36.7; O2SAT 100
[2020-10-20] MEDS: Docusate Sodium 100 MG Capsule PO (08:48)
[2020-10-20] MEDS: Pantoprazole Sodium 20 MG Tablet PO (08:48)
[2020-10-20 08:49] VITALS: PULSE 84
[2020-10-20] MEDS: Metoprolol Tartrate 50 MG Tablet PO (08:49)
[2020-10-20] MEDS: Aspirin E.C. 81 MG Tablet PO (08:49)
[2020-10-20] MEDS: amLODIPine 5 MG Tablet PO (08:50)
--- NOTE | 2020-10-20 10:00 | CASEMGMT ---
RN CM Face to Face with patient for initial transition planning/care coordination assessment. RN CM introduced self and role at [facility]. Patient lying in bed, alert and oriented. Patient willing to participate in assessment and is able to answer all questions appropriately. Care providers, pharmacy, and demographics verified. Patient wishes to discharge home, denies need for home health at this time. Patient states he has no further needs or concerns at this time. CM to follow for discharge planning needs that may arise. PCP: Angel Specialists: Natalie LUTZ, Pérez TERRAZZO LAYER HELPER; surgeon Erika Rodarte Pharmacy: [facility] Insurance: [employer] Prescription Benefit:yes Living Will/HPOA: yes, friend Deann Judge HPOA LNOK: friend Deann Living Arrangements: Patient lives with Deann in a first floor apartment with 6 steps and railing to enter the home. Patient states he is independent at home. Transportation: self/public DME/HHC: patient states he has shower chair, cane, walker, and grab bars at home. Patient denies previous HHC or SNF. Disposition Plan: Patient to discharge home with family support and follow-up plans in place. Dionne MCCLAIN, RN, CM
--- NOTE | 2020-10-20 10:46 | PHA.DC.MR ---
Pharmacy Service has performed discharge medication reconciliation for this patient. The patient's discharge medication list was reviewed for discrepancies and discrepancies were resolved. Home Medications docusate sodium 100 mg PO DAILY 05/24/15 metoprolol tartrate 50 mg PO BID 05/24/15 aspirin 81 mg PO DAILY 06/26/15 clopidogrel 75 mg PO DAILY 06/26/15 amlodipine 5 mg tablet 5 mg PO DAILY 07/27/18 polyethylene glycol 3350 17 gram oral powder packet 17 g PO DAILY 07/23/19 colestipol 1 gram tablet 1 g PO DAILY tab 09/01/20 ketotifen fumarate [Allergy Eye (ketotifen)] 1 drp EACH EYE BID 10/17/20 omeprazole 20 mg PO DAILY 10/17/20
== END 2020-10-20 11:58 | disposition home or self-care (01) | DRG 24 ==
LOC: ACINP 05:19 → MS3 11:50
PROVIDERS: Anesthesiology; Admitting Provider Surgery; PCP Internal Medicine; Referring Provider Surgery; Visit Provider Surgery
PROC: 03CL0ZZ Extirpation of Matter from Left Internal Carotid Artery, Open Approach (ICD-10-PCS; CPT 35301; principal; 2020-10-19 07:10)
DX: I65.23 Occlusion and stenosis of bilateral carotid arteries (principal); I25.10 Atherosclerotic heart disease of native coronary artery without angina pectoris; I25.2 Old myocardial infarction; E78.5 Hyperlipidemia, unspecified; I10 Essential (primary) hypertension; I48.0 Paroxysmal atrial fibrillation; Z79.899 Other long term (current) drug therapy; Z79.02 Long term (current) use of antithrombotics/antiplatelets; Z79.82 Long term (current) use of aspirin; Z87.891 Personal history of nicotine dependence; Z86.73 Personal history of transient ischemic attack (TIA), and cerebral infarction without residual deficits
CPT/HCPCS: 36415; 78452; 80048; 80076; 85027; 85347; 85610; 85730; 87426; 88304; 88311; 93005; 93017; 99251; A9500; C9803; J7040; J7050; J7120; A4216; G0463; J2405; J2785

== ENCOUNTER 2020-11-23 18:23 | Emergency (ER) | payer OTHER, MEDICAID, SELFPAY ==
[2020-11-23 18:24] VITALS: BP 187/88; PULSE 79; RESP 16; TEMP 36.4; O2SAT 100; BMI 26.8
--- NOTE | 2020-11-23 18:37 | EDS_ITS ---
HPI History of Present Illness Chief Complaint: Upper Extremity Injury Informant: patient Narrative Narrative: Presents for evaluation of bruise right upper arm occurring a week ago. States caring case of pop when it got pinched. There was a significant bruising initially which is slowly improving. He is on aspirin and Plavix. No new injuries. He states he noted a white to clear spot in the middle today and wanted it evaluated. Reporting had a second hematoma in the past that required drainage previously. Denies any pain to the area currently. No fevers. Prior similar symptoms: Yes PFSH PFSH Medical History Atherosclerotic heart disease of [place] coronary artery without angina pectoris Bilateral carotid artery stenosis Cardiology follow-up encounter Easy bruising Encounter for long-term current use of high risk medication Essential (primary) hypertension Former smoker High cholesterol History of atrial fibrillation History of diverticulitis History of echocardiogram History of heart attack History of IBS History of non-ST elevation myocardial infarction (NSTEMI) (05/25/15) Hyperlipidemia Hypertension Injury of back Paroxysmal atrial fibrillation Right carotid bruit Shortness of breath TIA (transient ischemic attack) Wears glasses Home Medications docusate sodium 100 mg PO DAILY 05/24/15 [History Last Taken 10/16/15] metoprolol tartrate 50 mg PO BID 05/24/15 [History Last Taken 10/19/20] aspirin 81 mg PO DAILY 06/26/15 [History Last Taken 10/16/15] clopidogrel 75 mg PO DAILY 06/26/15 [History Last Taken 10/16/15] amlodipine 5 mg tablet 5 mg PO DAILY 07/27/18 [History Last Taken 10/19/20] polyethylene glycol 3350 17 gram oral powder packet 17 g PO DAILY 07/23/19 [History Last Taken Unknown] colestipol 1 gram tablet 1 g PO DAILY tab 09/01/20 [History Last Taken Unknown] ketotifen fumarate [Allergy Eye (ketotifen)] 1 drp EACH EYE BID 10/17/20 [History Last Taken 10/19/20] omeprazole 20 mg PO DAILY 10/17/20 [History Last Taken 10/19/20] Allergy/AdvReac Type Severity Reaction Status Date / Time atorvastatin Allergy hurts my Verified 11/23/20 18:26 liver fish oil Allergy Rash Verified 11/23/20 18:26 guaifenesin Allergy Unknown Verified 11/23/20 18:26 morphine Allergy Anaphylaxis Verified 11/23/20 18:26 niacin [From Slo-Niacin] Allergy Unknown Verified 11/23/20 18:26 pravastatin Allergy 'hurts my Verified 11/23/20 18:26 Liver tramadol Allergy Itching Verified 11/23/20 18:26 lisinopril AdvReac Intermediate Sharp Verified 11/23/20 18:26 needle like pain in left chest, went away when stopped Family History Father Hypertension Myocardial infarction Mother Breast cancer Brother COPD (chronic obstructive pulmonary disease) Surgical History History of back surgery History of cardiac catheterization History of coronary artery stent placement (05/25/15) History of coronary artery stent placement Hx of cholecystectomy S/P carotid endarterectomy Social History Smoking Status: Former smoker alcohol intake: never substance use type: does not use what type of physical activity do you participate in: walking frequency: daily ROS ROS ED Constitutional Constitutional ED: Denies chills, fever(s) or sweats Eyes Eyes: Denies change in vision ENT ENT ED: Denies dysphagia or sore throat Cardiovascular Cardiovascular: Denies chest pain, leg edema, palpitations or racing heartbeat Respiratory/Chest Respiratory/Chest: Denies cough, dyspnea or dyspnea on exertion Gastrointestinal Gastrointestinal: Denies abdominal pain, diarrhea, nausea or vomiting Genitourinary Genitourinary ED: Denies dysuria, hematuria or urinary frequency Musculoskeletal Musculoskeletal: Denies back pain, extremity pain or neck pain Integumentary Reports rash and other Details: Skin bruise ; Denies wounds Neurologic Neurologic: Denies headache(s), paresthesias or weakness EXAM Physical Exam Const Vital Signs: 11/23/20 18:24 Temperature 97.5 F L Temperature Source Temporal Pulse Rate 79 Respiratory Rate 16 Blood Pressure 187/88 H Blood Pressure Mean 121 Pulse Ox 100 Oxygen Delivery Method Room Air Positive well nourished and well developed General Appearance ED: well developed and NAD HEENT Reports moist mucous membranes normocephalic and atraumatic Eyes PERRL, EOMs intact bilaterally and conjunctivae normal General Eye ED: Yes normal appearance of both eyes Neck no lymphadenopathy and supple General: Negative for tenderness Chest Wall Chest: Negative for tenderness Resp normal respiratory effort and normal air movement Effort and Inspection: symmetric chest movement; Negative for respiratory distress Cardio regular rate, regular rhythm and no murmurs Peripheral Pulses: pulses 2+ throughout GI normal to inspection, nondistended, normoactive bowel sounds and non-tender Palpation: Negative for guarding or rebound tenderness present Back/Spine no CVA tenderness and no thoracic nor lumbar tenderness Extremity normal to inspection General Extremety ED: Negative for edema or tenderness General Extremity: Negative for edema Neuro oriented x3 and no sensory deficits noted Sensorium / Orientation: awake and alert Skin no rashes or lesions noted and no wounds Skin Narrative: Right upper extremity: Healing bruise distal medial aspect of the upper arm, there was a circular central sparing, however closer evaluation with pinching of the skin, this was spared. There is no indurations. No erythema. There is some yellowing around the edges. MDM MDM MDM Narrative Medical decision making narrative: Patient without current tenderness with healing bruise. There is central sparing with his history of pinching mechanism this is appropriate to be seen. There is no signs of infection. Discussed will heal over time. Patient reassured. All questions were answered. Discharge Plan Triage Chief Complaint: Upper Extremity Injury ED Provider: Karsten Beyer Dx/Rx/DC Orders Clinical Impression: Traumatic ecchymosis of right upper arm Instructions: Bruises (Contusions) Prescriptions: No Action amlodipine 5 mg tablet 5 mg PO DAILY RF: 0 colestipol 1 gram tablet 1 g PO DAILY RF: 0 polyethylene glycol 3350 [Miralax] 17 gram powder in packet 17 g PO DAILY RF: 0 metoprolol tartrate 50 MG tablet 50 mg PO BID RF: 0 docusate sodium 100 MG capsule 100 mg PO DAILY RF: 0 clopidogrel 75 MG tablet 75 mg PO DAILY RF: 0 aspirin 81 MG tablet,delayed release (DR/EC) 81 mg PO DAILY RF: 0 ketotifen fumarate [Allergy Eye (ketotifen)] 0.025 % (0.035 %) Drops 1 drp EACH EYE BID RF: 0 omeprazole 20 mg Capsule,Delayed Release(Dr/Ec) 20 mg PO DAILY RF: 0 Primary Care Provider: Bob Ortiz Referrals: Bob Ortiz MD [Primary Care Provider] - As Needed Disposition Disposition: Home, Self Care Discharge Date/Time: 11/23/20 19:01
== END 2020-11-23 19:01 | disposition home or self-care (01) ==
LOC: ED 18:54
PROVIDERS: Emergency Provider Emergency Medicine; PCP Internal Medicine
DX: S40.021A Contusion of right upper arm, initial encounter (principal); I25.2 Old myocardial infarction; I25.10 Atherosclerotic heart disease of native coronary artery without angina pectoris; X58.XXXA Exposure to other specified factors, initial encounter; Z87.891 Personal history of nicotine dependence
CPT/HCPCS: 99282

== ENCOUNTER 2021-05-08 05:10 | Inpatient (IN) | payer MEDICARE, MEDICAID, SELFPAY ==
--- NOTE | 2021-05-02 09:53 | EKG12_ITS ---
Test Reason : PREOP Blood Pressure : / mmHG Vent. Rate : 061 BPM Atrial Rate : 061 BPM P-R Int : 134 ms QRS Dur : 092 ms QT Int : 418 ms P-R-T Axes : 045 009 036 degrees QTc Int : 420 ms Normal sinus rhythm Normal ECG Confirmed by KATHRINE KING, AVELINA ([id number]), supervising film or videotape editor CHUCK COOPER ([id number]) on 05/02/2021 1:36:14 PM Referred By: MEREDITH Confirmed By:AVELINA CHISHOLM MD
[2021-05-02 10:17] LABS: Hemoglobin 15.1 g/dL (13.0-16.5); Mean Corp Hgb Conc 35.1 g/dL (32-36); Mean Corpuscular Hgb 30.6 pg (27.0-32.0); Mean Corpuscular Volume 87.2 fL (80-94); Mean Platelet Vol. 9.7 fl (6.2-12.0); Platelet Count 291 K/mm3 (150-450); RBC Distribution Width CV 12.5 % (11.6-14.6); RBC Distribution Width SD 39.8 fl (35.1-43.9); Red Blood Count 4.93 M/mm3 (4.6-6.2); White Blood Count 9.3 K/mm3 (4.4-11.0)
[2021-05-02 10:27] LABS: International Normalized Ratio 1.1; Prothrombin Time (Protime)PT. 13.3 SECONDS (11.7-14.9)
[2021-05-02 10:28] LABS: Partial Thromboplast Time 30.1 Seconds (24.1-36.2)
[2021-05-02 11:02] LABS: AST(SGOT) 67 U/L (15-37); Alanine Aminotransfer ALT/SGPT 146 U/L (16-61); Albumin, Serum 4.2 g/dL (3.2-5.0); Alkaline Phosphatase 95 U/L (45-117); Bilirubin, Direct 0.16 mg/dL (0.00-0.30); Globulin 3.3 g/dL (2.2-4.2); Protein, Total 7.5 g/dL (6.4-8.2)
[2021-05-02 11:03] LABS: Anion Gap 7 (5-15); BUN 12 mg/dL (7-18); BUN/Creat Ratio 13.9 RATIO (10-20); Calcium,Total 9.7 mg/dL (8.5-10.1); Chloride 101 mmol/L (98-107); Creatinine, Serum 0.86 mg/dL (0.70-1.30); EST Glomerular Filtration Rate 94 mL/min (>60); Est Glom Filt Rate - Afr Amer 114 mL/min (>60); Glucose 152 mg/dL (74-106); Potassium 4.5 mmol/L (3.5-5.1); Sodium Level 136 mmol/L (136-145)
[2021-05-04 17:15] LABS: Hemoglobin A1c 6.7 % (3.8-5.6)
[2021-05-08] VITALS (20 sets, daily range): BP systolic 91–161; BP diastolic 42–79; PULSE 64–79; RESP 14–18; TEMP 36.1–36.8; O2SAT 94–100; BMI 27.2
--- NOTE | 2021-05-08 05:19 | PCM.HP.BLA ---
History and Physical Date of Admission: 05/08/21 Intake Visit Reasons: update h&p R CEA 3- Chief Complaint: Update H&P R CEA 05/08 Yarn Man Required: No Is patient in pain?: No Allergies atorvastatin Allergy (Verified 05/02/21 09:04) hurts my liver fish oil Allergy (Verified 05/02/21 09:04) Rash guaifenesin Allergy (Verified 05/02/21 09:04) Unknown morphine Allergy (Verified 05/02/21 09:04) Anaphylaxis niacin [From Slo-Niacin] Allergy (Verified 05/02/21 09:04) Unknown pravastatin Allergy (Verified 05/02/21 09:04) 'hurts my Liver tramadol Allergy (Verified 05/02/21 09:04) Itching lisinopril Adverse Reaction (Intermediate, Verified 05/02/21 09:04) Sharp needle like pain in left chest, went away when stopped Medications docusate sodium 100 mg PO DAILY 05/24/15 [History Confirmed 05/02/21] metoprolol tartrate 50 mg PO BID 05/24/15 [History Confirmed 05/02/21] aspirin 81 mg PO DAILY 06/26/15 [History Confirmed 05/02/21] clopidogrel 75 mg PO DAILY 06/26/15 [History Confirmed 05/02/21] amlodipine 5 mg tablet 5 mg PO DAILY 07/27/18 [History Confirmed 05/02/21] polyethylene glycol 3350 17 gram oral powder packet 17 g PO DAILY 07/23/19 [History Confirmed 05/02/21] colestipol 1 gram tablet 1 g PO DAILY tab 09/01/20 [History Confirmed 05/02/21] ketotifen fumarate [Allergy Eye (ketotifen)] 1 drp EACH EYE BID 10/17/20 [History Confirmed 05/02/21] pantoprazole 40 mg tablet,delayed release 40 mg PO DAILY 05/02/21 [History Confirmed 05/02/21] phenylephrine-shark liver oil-mineral oil-petrolatum rectal ointment 1 applic ME Q8H PRN 05/02/21 [History Confirmed 05/02/21] PFSH Medical History Atherosclerotic heart disease of [place] coronary artery without angina pectoris Bilateral carotid artery stenosis Cardiology follow-up encounter Easy bruising Encounter for long-term current use of high risk medication Essential (primary) hypertension Former smoker High cholesterol History of atrial fibrillation History of diverticulitis History of echocardiogram History of heart attack History of IBS History of non-ST elevation myocardial infarction (NSTEMI) (05/25/15) Hyperlipidemia Hypertension Injury of back Paroxysmal atrial fibrillation Right carotid bruit Shortness of breath TIA (transient ischemic attack) Wears glasses Surgical History History of back surgery History of cardiac catheterization History of coronary artery stent placement (05/25/15) History of coronary artery stent placement Hx of cholecystectomy S/P carotid endarterectomy Family History Father Hypertension Myocardial infarction Mother Breast cancer Brother COPD (chronic obstructive pulmonary disease) Social History Smoking Status: Former smoker alcohol intake: never substance use type: does not use what type of physical activity do you participate in: walking frequency: daily HPI HPI HPI: ELIAS SHANE, is a 66 M who presents to the office today for an update history and physical for an upcoming right carotid endarterectomy. Patient denies recent hospitalizations or illnesses since his last office visit. Patient has previously completed a left carotid endarterectomy in September 2020. Patient denies any neurological issues currently. He is currently maintained on Plavix and aspirin. He has a history of two cardiac stent placements previously. 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 He denies nay concerns with anesthesia. Patient's previous history per Dr. Rodarte: ELIAS SHANE, is a 65 M who presents to the office today for surgical discussion regarding his high-grade stenosis of his right internal carotid artery. I had performed a urgent left carotid endarterectomy on October 20, 2020 for him secondary to critical stenosis. This was a very demanding technical procedure. The ansa cervicalis had to be transected in order to mobilize the hypoglossal nerve. Cephalad control of the internal carotid and the extent of the atherosclerotic plaque with the internal carotid was challenging. I was able to place a shunt. Because of the positioning however that shunt did become dislodged. Completed the procedure without it. The patient had diffuse oozing from all skin sites secondary to his clopidogrel therapy. Postoperatively he had some oozing and some ecchymosis and swelling. His headache he states was due to inner ear problems chlorine reaction which resolved with ENT and drops. He has absolutely no neurologic complaints at the moment. He is pleased with how he is healed from the left carotid enterectomy and states he has had no consequence. He is on clopidogrel ever since coronary stenting with his most recent stents placed April 2015. As noted previously he has significant hyperlipidemia. He does bring me laboratory from the [facility]. November 21, 2020 at a hemoglobin 13.8 antibiotic rate of 39.4 with a platelet count of 297,000. Potassium was 4.3. BUN 15 creatinine 0.8. Liver function tests were normal. His cholesterol over was elevated to 217 and LDL was 157 and HDL was 33 and triglycerides 296. He states that he has had a chronic elevation of these factors and is not able to correct him secondary to his intolerance to statin medications. The only medication he is on now is colestipol 65-year-old gentleman. He returns for surgical follow-up. He has a history of bilateral carotid artery stenosis with critical stenosis and plaque ulceration of the left internal carotid. On October 19, 2020 he underwent a left carotid endarterectomy with bovine patch angioplasty. The patient had been maintained on aspirin and clopidogrel preoperatively because of the high risk lesion. He was noted to be diffusely oozy during the procedure. It is of note that he has greater than 70% stenosis of the right internal carotid. The left carotid enterectomy was technically demanding. September 20, 2020 Reason For Study: Right carotid bruit Rt. Velocities/BP Lt. Velocities/BP Prox CCA 95.6/16 cm/sec. Prox CCA 92.5/15.1 cm/sec. Mid CCA 90.4/26.5 cm/sec. Mid CCA 63/15.1 cm/sec. Dist CCA 70.8/22.6 cm/sec. Dist CCA 69.5/14.2 cm/sec. Prox ICA 124.7/42.6 cm/sec. Prox ICA 39.3/8.1 cm/sec. Mid ICA 358.4/104 cm/sec. Mid ICA 268.9/96.4 cm/sec. Dist ICA 210.6/70.7 cm/sec. Dist ICA 94.2/30.3 cm/sec. Rt. ICA/CCA = 3.96. Lt. ICA/CCA = 3.90. Prox ECA 161.4/29.3 cm/sec. Prox ECA 181.3/21.1 cm/sec. Rt. Vert. 33.7/11 cm/sec. Lt. Vert. 69.5/24.1 cm/sec. Right Extracranial There is homogeneous, smooth atherosclerotic plaque noted in the right common carotid artery. There is heterogeneous, irregular atherosclerotic plaque noted in the right internal carotid artery. There is heterogeneous, irregular atherosclerotic plaque noted in the right external carotid artery. Antegrade flow is noted in the right vertebral artery. Left Extracranial There is homogeneous, smooth atherosclerotic plaque noted in the left common carotid artery. There is heterogeneous, irregular atherosclerotic plaque noted in the left internal carotid artery. Drum beat flow noted at the Proximal ICA. There is heterogeneous, irregular atherosclerotic plaque noted in the left external carotid artery. Antegrade flow is noted in the left vertebral artery. Procedure Carotid Duplex 90223. This is a Carotid Duplex examination using B-mode, color flow and specral Doppler. Preliminary called to Sonja. Exam performed in department. VL/Carotid Duplex Ultrasound Interpretation Summary Irregular calcific plaque at the proximal right internal and external carotid arteries Greater than 70% stenosis right internal carotid artery with visible area of narrowed mid internal carotid artery with significant turbulence Less than 50% stenosis right external carotid artery Irregular calcific plaque at the proximal left internal and external carotid arteries Greater than 70% stenosis left internal carotid artery Less than 50% stenosis left external carotid artery Patent and antegrade vertebral arteries bilaterally Ordering Physician: Gayathri Noonan Referring Physician: Bob Ortiz M.D. Performed By: Dionne Cabral RVT and Student October 13, 2020 STUDY: CTA NECK WITH CONTRAST REASON FOR EXAM: Male, 65 years old. Bilateral carotid stenosis RADIATION DOSAGE (If Supplied By Facility): CTDIvol = ( 18.34 ) mGy, DLP = ( 540.83 ) mGycm TECHNIQUE: CT angiography with multi-detector data acquisition was performed from the aortic arch to the skull base following intravenous administration of IV 100mL Isovue-370. MIP images were reconstructed from the axial data set. Post-processing of the angiographic images was performed, with multiplanar reformation and 3D reconstruction. Individualized dose optimization techniques were used for this CT. COMPARISON: None. FINDINGS: AORTIC ARCH: There is atherosclerotic calcific plaque formation of the aortic arch and great vessels arising from the aortic arch, without a hemodynamically significant stenosis. There is a normal origin of the brachiocephalic, left common carotid, and left subclavian arteries. RIGHT CAROTID ARTERIES: Normal right common carotid artery (CCA). Normal right common carotid bulb. There is extensive atherosclerotic plaque formation of the origin of the right internal carotid artery with an estimated stenosis of greater than 70%. Normal visualized cervical portion of the right internal carotid artery. Normal origin of the right external carotid artery (ECA). LEFT CAROTID ARTERIES: Normal left common carotid artery (CCA). Normal left common carotid bulb. There is severe atherosclerotic plaque formation of the origin of the left internal carotid artery with a near complete occlusion. Normal visualized cervical portion of the left internal carotid artery. Normal origin of the left external carotid artery (ECA). VERTEBRAL ARTERIES: There is enhancement within the bilateral vertebral arteries with a small right vertebral artery, and a dominant left vertebral artery. CT/CTA Neck W/WO Contrast IMPRESSION: There is a tight stenosis in the proximal portion of the left internal carotid artery with evidence of an ulcerated plaque. There is evidence of a greater than 70% narrowing in the proximal portion of the left internal carotid artery. Electronically Signed: Hollis Nickerson MD at 9:26 EDT , Service support , ROS General General: Yes fatigue; No weight change, appetite, colon cancer, breast cancer or weakness HEENT HEENT: No difficulty swallowing, eye injury, eye surgery, swollen glands or hoarseness Endo Endocrine: Yes diabetes mellitus; No thyroid disease, thyroid cancer, Hair loss, heat intolerance or cold intolerance Skin Skin: No rash or changing moles Breast Breast: No left breast lump, right breast lump, nipple discharge, breast pain, abnormal mammogram, abnormal US or breast enlargement Musc Musculoskeletal: Yes back problems; No arthritis, rheumatoid arthritis, gout or joint pain Cardio Cardiovascular: No murmur, pacemaker, heart disease, atrial fibrillation, high blood pressure, heart attack, heart stent, palpitations, shortness of breat with exertion or chest pain Psych Psychiatric: No depression, anxiety or hearing voices Resp Respiratory: Yes shortness of breath, No sleep apnea, No cough, No COPD, No asthma, No emphysema and No wheezing Gastro Gastrointestinal: No abdominal pain, No nausea or vomiting, No diarrhea, Yes constipation, No blood in stool, Yes acid reflux, Yes hemorrhoids, No ulcers, No gallbladder problem and No black,tarry stools Leon Hematologic: Yes blood thinners, No blood disorders, No bleeding, No anemia and No blood clots Neuro Neurologic: No system reviewed and no additional complaints, except as documented, No as per HPI, No abnormal gait, No abnormal hearing, No abnormal movements, No abnormal speech, No behavioral changes, No burning sensations, No confusion, No convulsions, No disequilibrium, No dizziness, No localized weakness, No frequent falls, No headache(s), No lack of coordination, No loss of vision, No memory loss, Yes numbness, No other visual disturbances, No radicular pain, No restless legs, No sensory deficit, No syncope, Yes tingling, No tremor(s), No weakness and No other Exam Const General: cooperative, healthy appearing and comfortable [facility] Head: normal to inspection Eyes General: appearance normal, both eyes and all related structures Neck Neck: normal visual inspection Neck mass: No Resp Effort & Inspection: normal respiratory effort Auscultation: clear to auscultation bilaterally Cardio Rate: regular rate Rhythm: regular rhythm GI Inspection: normal to inspection Palpation: soft Auscultation: normal bowel sounds Skin General: no rashes or lesions noted Neuro General: no focal motor deficits and CN's II-XI intact bilaterally Extrem General: normal to inspection Psych Appearance: grossly normal Affect: normal affect Assessment and Plan Assessment and Plan (1) Carotid stenosis, right: Status: Acute Plan - MEREDITH HoodC: Dr. Rodarte will plan to perform a right carotid endarterectomy with bovine patch angioplasty. Procedure details, risks and benefits have been reviewed. Patient has had the opportunity to ask and have questions answered. Patient verbally understands and agrees with the plan. Patient will hold his Plavix 3 days prior to the procedure. He may continue his daily aspirin. The patient has done well since his left carotid endarterectomy. He denies any headache. The left neck pain. No motor or sensory loss. No speech deficit. No dizziness. He has not had any hospitalizations since I seen him last. He has a good feeling of wellness. He stopped his clopidogrel therapy on May 03, 2021. Instructions were to stop 3 days preoperatively. He did remain on his low-dose aspirin therapy. Plan to proceed with arterial line placement and right carotid endarterectomy with patch angioplasty. He is aware of the technique, benefit, risk and alternatives. He has had an opportunity to ask and have questions answered. We will proceed as noted. Chan Rodarte M.D., F.A.C.S.
--- NOTE | 2021-05-08 06:35 | OP.PCM_ITS ---
Problems Associated Problem List Diagnoses (1) Carotid stenosis, right: Report of Operation Date of Procedure: 05/08/21 Pre-Operative Diagnosis: Critical stenosis right extracranial internal carotid artery Post-Operative Diagnosis: Same Surgery/Procedure Performed:: Left radial arterial line placement Right carotid endarterectomy with bovine patch angioplasty Vascu-Guard 0.8 x 8 cm Lot number [id number] PN #[id number] Expiry date 03/21/2025 Description of Surgical Findings:: Timeout and informed consent was obtained. At the bedside Dylan test performed demonstrating adequate ulnar flow. The left wrist was gently extended prep with Betadine 1% lidocaine was used as a local anesthetic. A 20-gauge arrow Angiocath cath was inserted under ultrasound guidance in the radial artery and then advanced with Seldinger wire technique. It was secured skin with 3-0 silk. Connected to pressure tubing OpSite dressing and Florence wrap applied. The patient tolerated the procedure well hand was viable to completion no apparent complication good waveform was obtained. Subsequently the patient was taken to the operating room. He was placed supine on the table. He underwent general endotracheal ovation anesthesia. The right neck was sterilely prepped and draped. An oblique incision was made along the anterior sternocleidomastoid sharp dissection was performed down through the subcutaneous tissue. Platysma was incised. The sternocleidomastoid was reflected laterally. Blunt dissection was used to identify the common carotid internal and external carotids. Moy tie of Dacron tape was placed around the common carotid and a Dacron tape with Karlie tourniquet around the internal carotid and a vessel loop around the external carotid. The patient then receive d 1000 units of heparin. ACT monitoring was used throughout the procedure. After adequate circulating time a Angeles clamp was placed on the internal carotid and a peripheral vascular clamp on the common carotid and external carotid. 11 blade was used to make an arteriotomy which was extended with Moy scissors. A #10 USCI style shunt was placed cephalad and proximally. Time to place the shunt was 2 minutes. An endarterectomy was formed of the external elastic lamina layer. The plaque was sharply transected proximally carefully tethered free and that the internal carotid it was carefully dissected free. I did put a single tacking suture of 7-0 Prolene. Irrigation was performed. Then I used a 0.8 x 8 cm bovine patch. I trimmed that deformity with a patch angioplasty with a running 6-0 Prolene. Care was taken to assure that I had intimal secured proximally and distally. Prior to completion the vessel was irrigated the shunt was removed backflow was confirmed. Initial flow was then instituted from the external carotid common carotid and internal carotid. Time for shunt removal was 4 minutes. Pressure was held for hemostasis. Vessel appear to be intact. The patient received 20 mg of protamine as reversal. Surgicel was used as well. Finally at the completion I placed Gelfoam and then closed the wound with platysmal layer running 3-0 Vicryl in a subdermal layer of running subicular 5-0 Vicryl. The periincisional areas anesthetized with 20 cc of 0.5% Marcaine. Steri-Strips Telfa OpSite dressings applied. Sponge and instrument and needle counts were reported to the surgeon be correct. Specimens plaque. Drains none. Blood loss 100 cc. The patient was taken recovery area in satisfactory addition without apparent complication Chan Rodarte M.D., F.A.C.S. Surgeon: Chan Rodarte Type of Anesthesia: General and Local Anesthesiologist: Eloisa Oh
--- NOTE | 2021-05-08 06:37 | DCINST_ITS ---
Discharge Instructions Diet Discharge Diet: Light diet - advance as tolerated Activity Discharge Activity: May Not Drive (For 5 to 7 days), May Not Shower (For 3 days) and May Take a Tub Bath Weight Bearing Status: Full weight bearing Dressing / Incision Call your doctor if your incision/area has: Continuous Slow Oozing, Sudden Increased Bleeding and Increased Pain/ Swelling Call your doctor if you observe: Fever of 101 or Higher Suture Line Care: Avoid Pulling/Pushing Change Dressing in: 1 day (You may apply a dry gauze cover dressing to your incision as needed to protect from clothing irritation. Change as needed) Remove Dressing in: 1 week (Leave your Steri-Strips in place for 1 week then you may remove) Follow Up Care Please Follow Up With: Chan Rodarte MD When: Approximately 10 days. Please call [phone] to arrange for an appointment Test Results: You may shower on Friday. Pat the incision dry. The Steri- Strips can come off in approximately 1 week. Discharge Plan Admission Admit Date/Time: 05/08/21 05:10 Primary Reason for Your Visit: Critical stenosis of right carotid artery Attending Provider: Chan Rodarte Primary Care Provider: Bob Ortiz Discharge Orders/Prescriptions Prescriptions: Continued amlodipine 5 mg tablet 5 mg PO DAILY RF: 0 colestipol 1 gram tablet 1 g PO BID RF: 0 polyethylene glycol 3350 [Miralax] 17 gram powder in packet 17 g PO DAILY RF: 0 pantoprazole 40 mg tablet,delayed release (DR/EC) 40 mg PO DAILY RF: 0 Hemorrhoidal Ointment 1 applic MA Q8H PRN (Reason: ANUS) RF: 0 metoprolol tartrate 50 MG tablet 50 mg PO BID RF: 0 docusate sodium 100 MG capsule 100 mg PO DAILY RF: 0 clopidogrel 75 MG tablet 75 mg PO DAILY RF: 0 aspirin 81 MG tablet,delayed release (DR/EC) 81 mg PO DAILY RF: 0 ketotifen fumarate [Allergy Eye (ketotifen)] 0.025 % (0.035 %) Drops 1 drp EACH EYE DAILY RF: 0 Other Ambulatory Orders: 12 Lead EKG (Routine) Location: None Selected Ordered By: Dr. Chan Rodarte Referrals / Follow Up: Bob Ortiz MD [Primary Care Provider] - Disposition Disposition (needs filled in before D/C Order can be placed): Home, Self Care
[2021-05-08] MEDS: Lactated Ringers 1,000 ML 15 ML IV (06:43)
[2021-05-08] MEDS: Cefazolin 2 GM in 0.9% Normal Saline 100 ML IV (07:25)
--- NOTE | 2021-05-08 07:30 | PLAQ_PTH ---
PATIENT: ELIAS SHANE LOC: MS3 U#:[id number] AGE/SX: 66/M ROOM: [facility] [place] RE05/08/[address]: Dr. Chan Rodarte MD : 1955 BED: 1 DIS: 05/09/2021 SPEC #: [id number] RECD: 05/08/21 11:14 STATUS: DONALD MENENDEZ #: [id number] ABHILASH: 05/08/21 07:[address]: Chan Rodarte DEPT: SURGICAL PATHOLOGY RECD BY: Allison Love ENTERED: 05/08/21 13:56 SP TYPE: PLAQUE OTHR DR: Dr. Bob Ortiz MD Tissues: PLAQUE Procedures: Decalcification bone/plaque Surgery Specimen Level III HEADER OPERATION: Carotid endarterectomy with patch angioplasty and arterial PRE-OP DIAGNOSIS: Right carotid stenosis TISSUE SUBMITTED: Right carotid plaque MICROSCOPIC DIAGNOSIS Right carotid plaque, endarterectomy: Calcified atheromatous plaque consistent with severe stenosis. AM:zane 05/11/2021 GROSS DESCRIPTION Received in fixative is one container labeled with the patient's name and designated right carotid plaque. The specimen consists of a Y-shaped fragment of calcified yellow-diamond tissue measuring 3.7 x 1.6 x 0.8 cm. The specimen is sectioned and totally submitted in one cassette after decalcification. / AM:zane 05/08/2021 TC:5 CPT: 54419, 87009
[2021-05-08 08:02] LABS: Bedside Glucose 161 mg/dL (74-106)
--- NOTE | 2021-05-08 11:00 | SUR.PHASEI ---
At this time Ida Armendariz RN released pressure form right carotid, minimal shadow drainage noted on bandage, drainage circled
--- NOTE | 2021-05-08 11:29 | SUR.PHASEI ---
right carotid bandage remains the same with minimal shadowing, no new drainage or swelling noted at this time
--- NOTE | 2021-05-08 12:02 | SUR.PHASEI ---
NC 2L O2 placed on pt due to pt O2 sat dropping to 89% when pt is sleeping
[2021-05-08 13:26] LABS: Bedside Glucose 157 mg/dL (74-106)
[2021-05-08] MEDS: Cefazolin 1 GM/50 ML BAG IV ×2 (14:58→21:01)
[2021-05-08] MEDS: Aspirin E.C. 81 MG Tablet PO (16:17)
[2021-05-08] MEDS: Pantoprazole Sodium 40 MG Tablet PO (16:18)
[2021-05-08] MEDS: Metoprolol Tartrate 50 MG Tablet PO (21:00)
[2021-05-08] MEDS: Colestipol 1 GM TABLET PO (21:01)
[2021-05-09 04:00] VITALS: BP 117/63; PULSE 62; RESP 18; TEMP 36.9; O2SAT 96
--- NOTE | 2021-05-09 05:58 | PCM.PN.SRG ---
Subjective Subjective Patient has no complaints. He feels that he is doing very well.'s been able to void. He is steady on his feet. Objective Data Objective Data Vital Signs: Vital Signs Temp Pulse Resp BP Pulse Ox 98.5 F 62 18 117/63 96 05/09/21 04:00 05/09/21 04:00 05/09/21 04:00 05/09/21 04:00 05/09/21 04:00 Oxygen Flow Rate (L/min) 2 Oxygen Delivery Method Room Air Weight: 174 lb 2.643 oz Body Mass Index (BMI) 27.2 Intake & Output: Intake and Output for Last 24 Hours 05/07/21 05/08/21 05/09/21 23:59 23:59 23:59 Intake Total 834.25 / 1314.25 960 / 960 Balance 834.25 / 1314.25 960 / 960 Lab / Micro Data Result Diagrams: 05/02/21 09:42 05/02/21 09:42 Labs: Laboratory Results - last 24 hr 05/08/21 06:22: POC Glucose 161 H 05/08/21 13:23: POC Glucose 157 H Micro: Microbiology 05/07/21 09:35 Interface Orders SARS-CoV-2 Antigen (Rapid) - Final Physical Exam Resp normal respiratory effort Extremity Extremity Narrative: Neck is supple, right neck is clean and dry, neurologic exam intact Assessment & Plan Assessment/Plan (1) Carotid stenosis, right: PLAN: Patient is doing very well status post right carotid endarterectomy. His right carotid stenosis now resolved. He is stable for discharge. The patient is on clopidogrel therapy routinely per Dr. Gonzalez Jimbo cardiology. For his ongoing carotid care he would only require 81 mg aspirin. He is aware of this. Because of cardiac issues however he does need to continue his clopidogrel. He may resume that at home today. Chan Rodarte M.D., F.A.C.S.
[2021-05-09 06:30] VITALS: BP 117/63; PULSE 62; RESP 18; TEMP 36.9; O2SAT 96
[2021-05-09 11:09] LABS: ACT Activated Clotting Time 130 sec (74-137)
[2021-05-09 11:11] LABS: ACT Activated Clotting Time 273 sec (74-137)
== END 2021-05-09 06:47 | disposition home or self-care (01) | DRG 39 ==
LOC: ACINP 05:12 → MS3 15:27
PROVIDERS: Anesthesiology; Admitting Provider Surgery; PCP Internal Medicine; Referring Provider Surgery; Visit Provider Surgery
PROC: 03CM0ZZ Extirpation of Matter from Right External Carotid Artery, Open Approach (ICD-10-PCS; CPT 35301; principal; 2021-05-08 07:10)
DX: I65.23 Occlusion and stenosis of bilateral carotid arteries (principal); E11.9 Type 2 diabetes mellitus without complications; I48.0 Paroxysmal atrial fibrillation; E78.5 Hyperlipidemia, unspecified; I10 Essential (primary) hypertension; I25.10 Atherosclerotic heart disease of native coronary artery without angina pectoris; K21.9 Gastro-esophageal reflux disease without esophagitis; I25.2 Old myocardial infarction; Z87.891 Personal history of nicotine dependence; Z79.82 Long term (current) use of aspirin; Z79.02 Long term (current) use of antithrombotics/antiplatelets; Z79.899 Other long term (current) drug therapy
CPT/HCPCS: 36415; 80048; 80076; 82962; 83036; 85027; 85347; 85610; 85730; 87426; 88304; 88311; 93005; 99251; C9803; J7040; J7120; G0463; J2405

== ENCOUNTER → 2021-06-12 | Outpatient (CLI) | payer MEDICARE, MEDICAID, SELFPAY ==
--- NOTE | 2021-06-12 09:50 | CDU_ITS ---
Reason For Study: S/P Bilateral carotid endarectomy Rt. Velocities/BP Lt. Velocities/BP Prox CCA 91.3/21.2 cm/sec. Prox CCA 55.3/14.6 cm/sec. Mid CCA 92.5/24.9 cm/sec. Mid CCA 56.4/21.2 cm/sec. Dist CCA 79/20 cm/sec. Dist CCA 65.1/19 cm/sec. Prox ICA 84.6/18.8 cm/sec. Prox ICA 53.2/15.1 cm/sec. Mid ICA 110.1/35.3 cm/sec. Mid ICA 99.8/27.4 cm/sec. Dist ICA 91.9/29.8 cm/sec. Dist ICA 82.6/22.5 cm/sec. Rt. ICA/CCA = 1.21. Lt. ICA/CCA = 1.80. Prox ECA 104.7/17 cm/sec. Prox ECA 419.7/100.7 cm/sec. Rt. Vert. 35.2/7.8 cm/sec. Lt. Vert. 74/20 cm/sec. Right Extracranial There is homogeneous, smooth atherosclerotic plaque noted in the right common carotid artery. There is homogeneous, smooth atherosclerotic plaque noted in the right internal carotid artery. There is intimal thickening but no significant atherosclerotic plaque noted in the right external carotid artery. Antegrade flow is noted in the right vertebral artery. Left Extracranial There is homogeneous, smooth atherosclerotic plaque noted in the left common carotid artery. There is homogeneous, smooth atherosclerotic plaque noted in the left internal carotid artery. There is heterogeneous, irregular atherosclerotic plaque noted in the left external carotid artery. Antegrade flow is noted in the left vertebral artery. VL/Carotid Duplex Ultrasound Interpretation Summary Postoperative change right carotid bulb and proximal internal carotid artery wi th less than 50% stenosis of the internal carotid artery Less than 50% stenosis right external carotid artery Postoperative changes of the left carotid bulb and proximal internal carotid ar yamile with less than 50% stenosis of the internal carotid artery Greater than 50% stenosis left external carotid artery Patent and antegrade vertebral arteries bilaterally Improvement is noted bilaterally from the previous examination of September 20, 2020 Ordering Physician: Ludy Fitzpatrick Referring Physician: Bob Ortiz M.D. Performed By: Dionne Cabral RVT
== END | disposition home or self-care (01) ==
LOC: CVS 09:48
PROVIDERS: PCP Internal Medicine; Referring Provider Physician Assistant; Visit Provider Physician Assistant
DX: R09.89 Other specified symptoms and signs involving the circulatory and respiratory systems (principal)
CPT/HCPCS: 93880

== ENCOUNTER 2021-06-20 08:01 | Emergency (ER) | payer MEDICARE, MEDICAID, SELFPAY ==
[2021-06-20 08:02] VITALS: BP 186/87; PULSE 67; RESP 14; TEMP 36.4; O2SAT 96; BMI 26.8
--- NOTE | 2021-06-20 08:20 | EKG12_ITS ---
Test Reason : CP Blood Pressure : / mmHG Vent. Rate : 070 BPM Atrial Rate : 070 BPM P-R Int : 138 ms QRS Dur : 092 ms QT Int : 412 ms P-R-T Axes : 054 007 044 degrees QTc Int : 444 ms Sinus rhythm with frequent and consecutive Premature ventricular complexes Abnormal ECG Confirmed by MANI KING, TERRI ([id number]), legal editor CHUCK COOPER ([id number]) on 06/22/2021 10:25:41 AM Referred By: RAQUEL Confirmed By:TERRI SINGLETON MD
--- NOTE | 2021-06-20 08:20 | EDS_ITS ---
HPI History of Present Illness Chief Complaint: Chest Other Informant: patient Onset/Context/Timing Onset: Days (5 to 6 days) Timing: Waxes and wanes Narrative Narrative: Patient presents secondary to bruising on the left side of his chest with muscle spasm and swelling over his left posterior shoulder. Symptoms of been ongoing for the past 5 or 6 days. He states that when he had his prior heart attack his left shoulder swelled up similar to this. He denies any other chest pain or heaviness. He does report numbness in his left thumb and index finger but no shooting pain down his arm. He denies shortness of breath. [facility] Medical History (Updated 06/20/21 @ 10:[address] Louann Vides MD) Atherosclerotic heart disease of [place] coronary artery without angina pectoris Bilateral carotid artery stenosis Cardiology follow-up encounter Diabetes Easy bruising Encounter for long-term current use of high risk medication Essential (primary) hypertension Former smoker Gastric reflux History of atrial fibrillation History of diverticulitis History of echocardiogram History of heart attack History of IBS History of non-ST elevation myocardial infarction (NSTEMI) (05/25/15) Hyperlipidemia Hypertension Injury of back Paroxysmal atrial fibrillation Right carotid bruit TIA (transient ischemic attack) Wears glasses Home Medications docusate sodium 100 mg PO DAILY 05/24/15 [History Last Taken 10/16/15] metoprolol tartrate 50 mg PO BID 05/24/15 [History Last Taken 05/08/21 04:00] aspirin 81 mg PO DAILY 06/26/15 [History Last Taken 10/16/15] clopidogrel 75 mg PO DAILY 06/26/15 [History Last Taken 05/03/21] amlodipine 5 mg tablet 5 mg PO DAILY 07/27/18 [History Last Taken 05/08/21 04:00] polyethylene glycol 3350 17 gram oral powder packet 17 g PO DAILY 07/23/19 [History Last Taken Unknown] colestipol 1 gram tablet 1 g PO BID tab 09/01/20 [History Last Taken Unknown] ketotifen fumarate [Allergy Eye (ketotifen)] 1 drp EACH EYE DAILY 10/17/20 [History Last Taken 10/19/20] pantoprazole 40 mg tablet,delayed release 40 mg PO DAILY 05/02/21 [History Last Taken Unknown] phenylephrine-shark liver oil-mineral oil-petrolatum rectal ointment 1 applic LA Q8H PRN 05/02/21 [History Last Taken Unknown] Allergy/AdvReac Type Severity Reaction Status Date / Time atorvastatin Allergy hurts my Verified 06/20/21 08:04 liver fish oil Allergy Rash Verified 06/20/21 08:04 guaifenesin Allergy Unknown Verified 06/20/21 08:04 morphine Allergy Anaphylaxis Verified 06/20/21 08:04 niacin [From Slo-Niacin] Allergy Unknown Verified 06/20/21 08:04 pravastatin Allergy 'hurts my Verified 06/20/21 08:04 Liver tramadol Allergy Itching Verified 06/20/21 08:04 lisinopril AdvReac Intermediate Sharp Verified 06/20/21 08:04 needle like pain in left chest, went away when stopped Family History Father Hypertension Myocardial infarction Mother Breast cancer Brother COPD (chronic obstructive pulmonary disease) Surgical History History of back surgery History of cardiac catheterization History of coronary artery stent placement (05/25/15) History of coronary artery stent placement History of right-sided carotid endarterectomy Hx of cholecystectomy S/P carotid endarterectomy S/P carotid endarterectomy Social History Smoking Status: Former smoker alcohol intake: never substance use type: does not use what type of physical activity do you participate in: walking frequency: daily ROS ROS ED Constitutional Constitutional ED: Denies chills or fever(s) Eyes Eyes: Denies change in vision ENT ENT ED: Denies sore throat Cardiovascular Cardiovascular: Denies chest pain Respiratory/Chest Respiratory/Chest: Denies cough or dyspnea Gastrointestinal Gastrointestinal: Denies abdominal pain, diarrhea, nausea or vomiting Genitourinary Genitourinary ED: Denies dysuria Musculoskeletal Musculoskeletal: Reports arthralgias; Denies back pain Integumentary Reports other Details: Ecchymosis left chest ; Denies rash Neurologic Neurologic: Reports paresthesias; Denies headache(s) or weakness Allergic/Immunologic Allergic/Immunologic ED: Denies urticaria EXAM Physical Exam Const Vital Signs: 06/20/21 08:02 06/20/21 09:55 06/20/21 09:56 Temperature 97.6 F L Temperature Source Temporal Pulse Rate 67 64 Respiratory Rate 14 16 Respiratory Effort Normal Non-Labored Blood Pressure 186/87 H 129/73 H Blood Pressure Mean 120 91 Pulse Ox 96 98 Oxygen Delivery Method Room Air Room Air Positive well nourished and well developed General Appearance ED: well developed HEENT normocephalic and atraumatic Eyes PERRL and EOMs intact bilaterally Neck supple Chest Wall palpation of chest normal Chest Narrative: Old appearing ecchymosis on the left anterior chest. Resp normal respiratory effort Effort and Inspection: respiratory distress Cardio regular rate and regular rhythm GI normal to inspection, nondistended, normoactive bowel sounds, soft to palpation and non-tender Extremity normal to inspection Neuro oriented x3 Sensorium / Orientation: awake and alert Motor Exam: strength 5/5 throughout Psych mental status grossly normal Skin no rashes or lesions noted Heart Score History: Slightly/Non-Suspicious ECG: Normal Age: >/= 65 years Risk Factors: >/= 3 Risk Factors or History of CAD Troponin: </= Normal Limit Score: 4 MDM MDM MDM Narrative Medical decision making narrative: EKG, chest x-ray, lab work obtained. Lab Data Attestation: I reviewed the patient's lab results. Labs: Laboratory Results - last 24 hr 06/20/21 06/20/21 08:25 08:25 WBC 8.0 RBC 4.67 Hgb 14.4 Hct 41.1 MCV 88.0 MCH 30.8 MCHC 35.0 RDW Std Deviation 39.5 RDW Coeff of Rubia 12.2 Plt Count 239 MPV 9.6 Immature Gran % (Auto) 0.200 Neut % (Auto) 48.4 Lymph % (Auto) 36.2 Barnes % (Auto) 9.0 Eos % (Auto) 5.1 H Baso % (Auto) 1.1 H Absolute Neuts (auto) 3.9 Absolute Lymphs (auto) 2.91 Nucleated RBC % 0 Sodium 138 Potassium 4.3 Chloride 101 Carbon Dioxide 29.0 Anion Gap 8 BUN 11 Creatinine 0.78 Estim Creat Clear Calc 91.35 Est GFR (MDRD) Af Amer 129 Est GFR (MDRD) Non-Af 107 BUN/Creatinine Ratio 14.2 Glucose 141 H Calcium 9.3 Troponin I High Sens 4 Radiography Chest X-Ray - ED: 1 View, Read by ED Physician and Chronic Changes Diagnostic Testing: Clinical Impression(s) from Imaging Studies Chest X-Ray 06/20/21 08:50 IMPRESSION: The lungs are clear. A catheter is seen overlying the right lateral chest wall. Air is seen within the soft tissues. Clinical correlation recommended. Electronically Signed: Hollis Nickerson MD at 9:12 EDT , EKG Initial EKG: Attestation: I personally reviewed and interpreted this EKG as follows: Interpretation: Sinus Rhythm (Sinus at 70 with PVCs. No acute ischemia.) Treatment and Re-Evaluation Narrative: On repeat evaluation patient resting comfortably. Chest x-ray reveals chronic changes per my interpretation. Radiologist did not feel that there was a catheter on the right side of the chest with some soft tissue air. His chest is examined and he has no catheter. He did note that the sheet was bunched up under him with a took the x-ray. He has no subcutaneous air or tenderness on the right. EKG reveals no acute ischemia. Lab work is unremarkable with a troponin of 4. Patient is reassured with these findings will continue to monitor his symptoms at home. Return instructions provided. Discharge Plan Triage Chief Complaint: Chest Other ED Provider: Louann Vides Dx/Rx/DC Orders Clinical Impression: Atypical chest pain Instructions: ED Chest Pain, Noncardiac Prescriptions: No Action amlodipine 5 mg tablet 5 mg PO DAILY RF: 0 colestipol 1 gram tablet 1 g PO BID RF: 0 polyethylene glycol 3350 [Miralax] 17 gram powder in packet 17 g PO DAILY RF: 0 pantoprazole 40 mg tablet,delayed release (DR/EC) 40 mg PO DAILY RF: 0 Hemorrhoidal Ointment 1 applic LA Q8H PRN (Reason: ANUS) RF: 0 metoprolol tartrate 50 MG tablet 50 mg PO BID RF: 0 docusate sodium 100 MG capsule 100 mg PO DAILY RF: 0 clopidogrel 75 MG tablet 75 mg PO DAILY RF: 0 aspirin 81 MG tablet,delayed release (DR/EC) 81 mg PO DAILY RF: 0 ketotifen fumarate [Allergy Eye (ketotifen)] 0.025 % (0.035 %) Drops 1 drp EACH EYE DAILY RF: 0 Primary Care Provider: Bob Ortiz Referrals: Bob Ortiz MD [Primary Care Provider] - As Needed Disposition Disposition: Home, Self Care
[2021-06-20 08:35] LABS: Absolute Lymphocyte Count 2.91 X10^3/uL (0.83-4.51); Absolute Neutrophil Count 3.9 X10^3/uL (2.0-7.7); Basophil# 0.09 X10^3/uL; Basophil% 1.1 % (0-1); Eosinophil# 0.41 X10^3/uL; Eosinophils% 5.1 % (0-5); Hematocrit 41.1 % (40-54); Hemoglobin 14.4 g/dL (13.0-16.5); Lymphocyte # 2.91 X10^3/ul (0.83-4.51); Lymphocyte % 36.2 % (19-41); Mean Corpuscular Hgb 30.8 pg (27.0-32.0); Mean Platelet Vol. 9.6 fl (6.2-12.0); Monocyte# 0.72 X10^3/uL; NRBC Flagged by Analyzer 0 % (0-5); Neutrophil # 3.89 X10^3/uL (2.7-7.7); Neutrophil % 48.4 % (47-70); Platelet Count 239 K/mm3 (150-450); RBC Distribution Width CV 12.2 % (11.6-14.6); RBC Distribution Width SD 39.5 fl (35.1-43.9); Red Blood Count 4.67 M/mm3 (4.6-6.2)
--- NOTE | 2021-06-20 08:50 | RAD_ITS ---
STUDY: X-RAY CHEST REASON FOR EXAM: Male, 66 years old. Cp TECHNIQUE: Single AP portable view of the chest. COMPARISON: Comparison is made with prior study dated 06/28/2018. FINDINGS: EKG electrodes are seen. A catheter is seen overlying the right lateral chest wall with evidence of a air within the soft tissues. Clinical correlation is recommended. The lungs are clear and expanded. There is no demonstrated pleural abnormality. Normal size heart. Normal mediastinum and gracy. Normal visualized pulmonary arteries. There is atherosclerotic calcification of the aortic arch with tortuosity. There are diffuse degenerative changes of the visualized thoracic spine. Normal visualized ribs, clavicles, and shoulders. There is no demonstrated abnormality of the visualized soft tissue structures of the upper abdomen. RAD/Chest 1 View (Portable) IMPRESSION: The lungs are clear. A catheter is seen overlying the right lateral chest wall. Air is seen within the soft tissues. Clinical correlation recommended. Electronically Signed: Hollis Nickerson MD at 9:12 EDT ,
[2021-06-20 08:55] LABS: Anion Gap 8 (5-15); BUN 11 mg/dL (7-18); BUN/Creat Ratio 14.2 RATIO (10-20); Calcium,Total 9.3 mg/dL (8.5-10.1); Chloride 101 mmol/L (98-107); Creatinine, Serum 0.78 mg/dL (0.70-1.30); EST Glomerular Filtration Rate 107 mL/min (>60); Est Glom Filt Rate - Afr Amer 129 mL/min (>60); Estimated Creatinine Clearance 91.35 ml/min; Glucose 141 mg/dL (74-106); Potassium 4.3 mmol/L (3.5-5.1); Sodium Level 138 mmol/L (136-145); Troponin-I HS 4 pg/mL (3.0-78.0)
[2021-06-20 09:55] VITALS: BP 129/73; PULSE 64; RESP 16; O2SAT 98
== END 2021-06-20 10:42 | disposition home or self-care (01) ==
PROVIDERS: Emergency Provider Emergency Medicine; PCP Internal Medicine; Visit Provider Emergency Medicine
DX: R07.89 Other chest pain (principal); I25.10 Atherosclerotic heart disease of native coronary artery without angina pectoris; I25.2 Old myocardial infarction; Z87.891 Personal history of nicotine dependence; Z86.73 Personal history of transient ischemic attack (TIA), and cerebral infarction without residual deficits; Z95.5 Presence of coronary angioplasty implant and graft
CPT/HCPCS: 71045; 80048; 84484; 85025; 93005; 99284; A4216

== ENCOUNTER → 2022-01-09 | Outpatient (CLI) | payer MEDICARE, MEDICAID, SELFPAY ==
--- NOTE | 2022-01-09 12:43 | ECHOD_ITS ---
Reason For Study: CAD/ASHD Procedure This was a 2D Doppler, Color Flow transthoracic echocardiogram. Exam performed in department. Left Ventricle Normal LV size. Left ventricular systolic function is normal. The estimated ejection fraction is 55 %. Stage 1 diastolic dysfunction. No regional wall motion abnormalities noted. Right Ventricle Normal RV size. Normal systolic function. Atria Normal left atrium. Normal right atrium. Mitral Valve Normal mitral valve. Tricuspid Valve Normal tricuspid valve. Aortic Valve Trisinus/trileaflet aortic valve. Pulmonic Valve Normal pulmonic valve. Great Vessels Normal aortic root. The pulmonary artery is normal size. Normal inferior vena cava. Pericardium/Pleural No pericardial effusion. MMode/2D Measurements & Calculations LVIDd: 4.9 cm IVSd: 0.95 cm Ao root diam: 3.4 cm LVIDs: 3.2 cm LVPWd: 0.93 cm RVDd: 2.8 cm FS: 33.7 % LAV(MOD-bp): 50.6 ml LA A4 area: 17.0 cm2 LA dimension(2D): 3.8 cm LAV(MOD-bp) Indexed: 26.2 ml/m2 LAV(MOD-sp2): 48.0 ml LAV(MOD-sp4): 47.5 ml RA A4 area: 13.9 cm2 Time Measurements MV dec time: 0.22 sec Doppler Measurements & Calculations MV E max des: 63.8 cm/sec Lat Peak E' Des: 13.0 cm/sec Med Peak E' Des: 8.0 cm/sec MV A max des: 75.7 cm/sec E/E' lat: 4.9 E/E' med: 8.0 MV E/A: 0.84 MV dec slope: 301.9 cm/sec2 Ao V2 max: 148.4 cm/sec LV V1 max: 93.3 cm/sec Ao max P.8 mmHg LV V1 max P.5 mmHg PA V2 max: 137.8 cm/sec TR max des: 117.1 cm/sec PA V2 mean: 85.9 cm/sec TR max P.5 mmHg ECHO/Echo Complete Interpretation Summary Normal LV size. Left ventricular systolic function is normal. The estimated ejection fraction is 55 %. Stage 1 diastolic dysfunction. Ordering Physician: Carlos Choi Referring Physician: Bob Ortiz Performed By: Mai Nguyen, YANG, RVT
== END | disposition home or self-care (01) ==
PROVIDERS: PCP Internal Medicine; Visit Provider Internal Medicine Cardiovascular Disease
DX: I25.10 Atherosclerotic heart disease of native coronary artery without angina pectoris (principal)
CPT/HCPCS: 93306

== ENCOUNTER → 2022-07-01 | Outpatient (CLI) | payer MEDICARE, MEDICAID, SELFPAY ==
--- NOTE | 2022-07-01 09:50 | CDU_ITS ---
Reason For Study: Carotid stenosis Rt. Velocities/BP Lt. Velocities/BP Prox CCA 85.3/16.3 cm/sec. Prox CCA 71.1/17.3 cm/sec. Mid CCA 89.1/21.1 cm/sec. Mid CCA 59.8/16.3 cm/sec. Dist CCA 86.3/18.2 cm/sec. Dist CCA 59.8/15.4 cm/sec. Prox ICA 101.1/29.8 cm/sec. Prox ICA 60.7/13.5 cm/sec. Mid ICA 108.4/34.8 cm/sec. Mid ICA 85.3/25.8 cm/sec. Dist ICA 102.3/32.3 cm/sec. Dist ICA 65.5/16.3 cm/sec. Rt. ICA/CCA = 1.26. Lt. ICA/CCA = 1.43. Prox ECA 333.9/26.8 cm/sec. Prox ECA 30.9/6.2 cm/sec. Rt. Vert. 42.8/7.8 cm/sec. Lt. Vert. 57.9/13.5 cm/sec. Right Extracranial There is homogeneous, smooth atherosclerotic plaque noted in the right common carotid artery. There is homogeneous, smooth atherosclerotic plaque noted in the right internal carotid artery. There is heterogeneous, irregular atherosclerotic plaque noted in the right external carotid artery. Antegrade flow is noted in the right vertebral artery. Left Extracranial There is homogeneous, smooth atherosclerotic plaque noted in the left common carotid artery. There is heterogeneous, irregular atherosclerotic plaque noted in the left internal carotid artery. There is homogeneous, smooth atherosclerotic plaque noted in the left external carotid artery. Antegrade flow is noted in the left vertebral artery. Procedure Carotid Duplex [id number]. This is a Carotid Duplex examination using B-mode, color flow and specral Doppler. Exam performed in department. VL/Carotid Duplex Ultrasound Interpretation Summary Widely patent postoperative changes of the right carotid bulb and proximal inte rnal carotid with minimal smooth plaque and less than 50% stenosis Greater than 50% stenosis right external carotid artery Widely patent postoperative changes of the left carotid bulb and proximal inter nal carotid artery with less than 50% stenosis of the internal carotid Less than 50% stenosis left external carotid artery Patent and antegrade vertebral arteries bilaterally No change from the previous examination of June 12, 2021 Ordering Physician: Chan Rodarte Referring Physician: Bob Ortiz M.D. Performed By: Dionne Cabral RVT
== END | disposition home or self-care (01) ==
LOC: CVS 09:49
PROVIDERS: PCP Internal Medicine; Referring Provider Surgery; Visit Provider Surgery
DX: I65.23 Occlusion and stenosis of bilateral carotid arteries (principal); Z98.890 Other specified postprocedural states
CPT/HCPCS: 93880